=== PATIENT | female | born 1965 | race Caucasian/White ===

== ENCOUNTER 2018-09-26 05:42 | Emergency (ER) | payer SELFPAY ==
[2018-09-26] MEDS ORDERED: MORPHINE 4 MG/ML SYR ONE (06:09)
[2018-09-26] MEDS ORDERED: ONDANSETRON 4 MG/2 ML VIAL ONE (06:09)
[2018-09-26] MEDS ORDERED: KETOROLAC 30 MG/ML INJ ONE (06:10)
[2018-09-26 06:37] LABS: Hematocrit 36.3 % (36.0-45.0); RBC Red Blood Cell Count 3.49 M/uL (3.86-4.86)
[2018-09-26 06:58] LABS: Albumin 3.8 g/dL (3.4-5.0); Bilirubin Total 0.4 mg/dL (0.2-1.0); Potassium 3.9 mmol/L (3.5-5.1); Protein, Total 6.7 g/dL (6.4-8.2)
--- NOTE | 2018-09-26 07:12 | EDPHYS ---
Physician Documentation [facility] Name: Madalyn Oneil Age: 53 yrs Sex: Female : 1965 Arrival Date: 09/26/2018 Time: 05:46 Bed 3 Private MD: ED Physician Adrien Landon HPI: 09/26 06:15 This 53 yrs old Female presents to ER via Wheelchair with complaints of tw4 Shortness Of Breath, Fall Injury. 06:15 Trauma demographics: County: The injury occurred in [place] Location of Injury: The tw4 [place] park. Mechanism of injury: Fall: the patient fell from a standing position approximately approximately 2 feet, and struck a metal surface. Associated injuries: The patient sustained injury to the chest. The patient has not experienced similar symptoms in the past. SURGICAL PATHOLOGIST: 05:47 LMP N/A - Post-menopause jd3 Historical: - Allergies: 05:51 PENICILLINS; jd3 05:51 TETRACYCLINES; jd3 - Home Meds: 05:51 None [Active]; jd3 - PMHx: 05:51 Diverticulitis; Hypertension; Pancreatitis; jd3 - PSHx: 05:51 bone marrow biopsy; jd3 - Immunization history:: Adult Immunizations up to date. - Social history:: Smoking status: Patient uses tobacco products, smokes one pack cigarettes per day. - Ebola Screening: : Patient negative for fever greater than or equal to 101.5 degrees Fahrenheit, and additional compatible Ebola Virus Disease symptoms. ROS: 06:15 Constitutional: Negative for fever, chills, and weight loss, Eyes: Negative for injury, tw4 pain, redness, and discharge, Abdomen/GI: Negative for abdominal pain, nausea, vomiting, diarrhea, and constipation, Back: Negative for injury and pain, MS/Extremity: Negative for injury and deformity, Skin: Negative for injury, rash, and discoloration, Neuro: Negative for headache, weakness, numbness, tingling, and seizure. 06:15 Cardiovascular: Positive for chest pain, Negative for edema, orthopnea, palpitations, paroxysmal nocturnal dyspnea. 06:15 Respiratory: Positive for shortness of breath. Exam: 06:15 Constitutional: This is a well developed, well nourished patient who is awake, alert, tw4 and in no acute distress. Head/Face: Normocephalic, atraumatic. 06:15 Respiratory: Lungs have equal breath sounds bilaterally, clear to auscultation and percussion. No rales, rhonchi or wheezes noted. No increased work of breathing, no retractions or nasal flaring. 06:15 Abdomen/GI: Soft, non-tender, with normal bowel sounds. No distension or tympany. No guarding or rebound. No evidence of tenderness throughout. Back: No spinal tenderness. No costovertebral tenderness. Full range of motion. MS/ Extremity: Pulses equal, no cyanosis. Neurovascular intact. Full, normal range of motion. Neuro: Awake and alert, GCS 15, oriented to person, place, time, and situation. Cranial nerves II-XII grossly intact. Motor strength 5/5 in all extremities. Sensory grossly intact. Cerebellar exam normal. Normal gait. 06:15 Chest/axilla: Inspection: normal, Palpation: crepitus, is not appreciated, tenderness, that is moderate, of the right breast, that totally reproduces the patient's complaints. 06:15 Respiratory: the patient does not display signs of respiratory distress, Respirations: shallow respirations, that is mild, splinting, that is mild. Vital Signs: 05:47 BP 138 / 86; Pulse 84; Resp 22 S; Temp 97.6(O); Pulse Ox 97% on R/A; Weight 63.5 kg jd3 (R); Height 5 ft. 11 in. (180.34 cm) (R); Pain 10/10; 06:32 BP 91 / 56; Pulse 55; Resp 19; Pulse Ox 93% on R/A; ea 07:28 BP 100 / 55; Pulse 58; Resp 18 S; Temp 98.0(TE); Pulse Ox 95% on R/A; Pain 10/10; aa5 05:47 Body Mass Index 19.53 (63.50 kg, 180.34 cm) jd3 MDM: 06:07 Patient medically screened. tw4 06:15 Differential diagnosis: intra-abdominal injury, cardiac contusion. Data reviewed: vital tw4 signs, nurses notes. Data interpreted: Pulse oximetry: Interpretation: normal. Counseling: I had a detailed discussion with the patient and/or guardian regarding: the historical points, exam findings, and any diagnostic results supporting the discharge/admit diagnosis. Medication response: morphine markedly relieved the patient's pain. Symptoms have improved. 07:10 Response to treatment: the patient's symptoms have markedly improved after treatment, tw4 and as a result, I will discharge patient. 09/26 06:07 Order name: CBC w/o diff tw4 09/26 06:07 Order name: CMP tw4 09/26 05:47 Order name: CT Chest Wo Con jd3 09/26 07:28 Order name: INCENTIVE SPIROMETRY: VO received at 0720 aa5 Administered Medications: 05:54 Drug: morphine 4 mg Route: IVP; Site: left antecubital; ea 06:34 Follow up: Response: No adverse reaction; Pain is decreased ea 05:55 Drug: Zofran 4 mg Route: IVP; Site: left antecubital; ea 06:34 Follow up: Response: No adverse reaction ea 05:57 Drug: TORadol 30 mg Route: IVP; Site: left antecubital; ea 06:35 Follow up: Response: No adverse reaction ea 07:22 Drug: fentaNYL (PF) 50 mcg Route: IVP; Site: left antecubital; aa5 07:28 Follow up: Response: No adverse reaction aa5 Disposition: 09/26/18 07:11 Discharged to Home. Impression: Contusion chest wall. - Condition is Stable. - Discharge Instructions: Contusion, Chest Wall Pain, Chest Contusion, Adult. - Prescriptions for Tylenol- Codeine #4 300-60 mg Oral Tablet - take 1 tablet by ORAL route every 6 hours As needed; 15 tablet. Diclofenac Sodium 75 mg Oral Tablet Sustained Release - take 1 tablet by ORAL route 2 times per day; 30 tablet. - Medication Reconciliation Form, Thank You Letter, Antibiotic Education, Prescription Opioid Use form. - Follow up: Private Physician; When: Upon discharge from the Emergency Department; Reason: If symptoms return, Recheck today's complaints, Continuance of care. - Problem is new. - Symptoms have improved. Signatures: Dispatcher [employer] EDMS Audrey Smith, RN RN aa5 Jael Jamison RN RN ea Davies, Jonathon RN RN Adrien Malloy MD MD tw4 Corrections: (The following items were deleted from the chart) 07:30 07:11 09/26/2018 07:11 Discharged to Home. Impression: Contusion chest wall. Condition aa5 is Stable. Forms are Medication Reconciliation Form, Thank You Letter, Antibiotic Education, Prescription Opioid Use. Follow up: Private Physician; When: Upon discharge from the Emergency Department; Reason: If symptoms return, Recheck today's complaints, Continuance of care. Problem is new. Symptoms have improved. tw4
--- NOTE | 2018-09-26 07:12 | ER ---
Nurse's Notes [facility] Name: Madalyn Oneil Age: 53 yrs Sex: Female : 1965 Arrival Date: 09/26/2018 Time: 05:46 Bed 3 Private MD: Diagnosis: Contusion chest wall Presentation: 09/26 05:48 Presenting complaint: Patient states: "[place] and [place]pped and jd3 fell on the railing at about 2300 yesterday. I heard a crack and I think I might have some broken ribs.". Transition of care: patient was not received from another setting of care. Onset of symptoms was September 26, 2018. Risk Assessment: Do you want to hurt yourself or someone else? Patient reports no desire to harm self or others. Initial Sepsis Screen: Does the patient meet any 2 criteria? No. Patient's initial sepsis screen is negative. Does the patient have a suspected source of infection? No. Patient's initial sepsis screen is negative. Care prior to arrival: None. 05:48 Method Of Arrival: Wheelchair jd3 05:48 Acuity: CONNIE 3 jd3 Triage Assessment: 05:53 Respiratory: Reports shortness of breath at rest pain with respiration since last night jd3 at 2300 Onset: The symptoms/episode began/occurred yesterday, the patient has mild shortness of breath. 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 - Social history:: Smoking status: Patient uses tobacco products, smokes one pack cigarettes per day. - Ebola Screening: : Patient negative for fever greater than or equal to 101.5 degrees Fahrenheit, and additional compatible Ebola Virus Disease symptoms. Screenin:53 Abuse screen: Denies threats or abuse. Nutritional screening: No deficits noted. jd3 Tuberculosis screening: No symptoms or risk factors identified. Fall Risk IV access (20 points). Ambulatory Aid- None/Bed Rest/Nurse Assist (0 pts). Gait- Weak (10 pts.). Mental Status- Oriented to own ability (0 pts). Total Leonard Fall Scale indicates Low Risk Score (25-44 pts). Fall prevention measures have been instituted. Side Rails Up X 2 Placed close to Nursing Station Frequent Obs/Assesments occuring Family Present and informed to notify staff if they need to leave bedside. Assessment: 05:58 General: Appears uncomfortable, Behavior is appropriate for age. Pain: Complains of ea pain in right lateral posterior chest Quality of pain is described as aching. Neuro: Level of Consciousness is awake, alert, obeys commands, Oriented to person, place, time. Cardiovascular: Patient's skin is warm and dry. Respiratory: Airway is patent Respiratory effort is even, shallow, Respiratory pattern is symmetrical, tachypnea. Respiratory: Parent/caregiver reports the patient having shortness of breath. GI: Abdomen is non-distended. Derm: Skin is dry, Skin is normal, Skin temperature is warm. 06:37 Reassessment: Patient and/or family updated on plan of care and expected duration. Pain ea level reassessed. Patient is alert, oriented x 3, equal unlabored respirations, skin warm/dry/pink. Pt reports pain has decreased some 10/14. 07:19 Reassessment: Dr. Landon speaking to patient about x-ray results and discharge aa5 instructions . 07:29 Reassessment: Patient is alert, oriented x 3, equal unlabored respirations, skin aa5 warm/dry/pink. Vital Signs: 05:47 BP 138 / 86; Pulse 84; Resp 22 S; Temp 97.6(O); Pulse Ox 97% on R/A; Weight 63.5 kg jd3 (R); Height 5 ft. 11 in. (180.34 cm) (R); Pain 10/10; 06:32 BP 91 / 56; Pulse 55; Resp 19; Pulse Ox 93% on R/A; ea 07:28 BP 100 / 55; Pulse 58; Resp 18 S; Temp 98.0(TE); Pulse Ox 95% on R/A; Pain 10/10; aa5 05:47 Body Mass Index 19.53 (63.50 kg, 180.34 cm) jd3 ED Course: 05:46 Patient arrived in ED. ds1 05:50 Triage completed. jd3 05:51 Arm band placed on. jd3 05:52 Inserted saline lock: 20 gauge in left antecubital area, using aseptic technique. jd3 placed by Jael HAYES. 05:53 Patient has correct armband on for positive identification. Placed in gown. Bed in low jd3 position. Call light in reach. Side rails up X 1. Adult w/ patient. 05:57 Jael Jamison, RN is Primary Nurse. ea 06:06 Adrien Landon MD is Attending Physician. tw4 06:22 CT Chest Wo Con In Process Unspecified. EDMS 07:29 No provider procedures requiring assistance completed. IV discontinued, intact, aa5 bleeding controlled, No redness/swelling at site. Pressure dressing applied. Administered Medications: 05:54 Drug: morphine 4 mg Route: IVP; Site: left antecubital; ea 06:34 Follow up: Response: No adverse reaction; Pain is decreased ea 05:55 Drug: Zofran 4 mg Route: IVP; Site: left antecubital; ea 06:34 Follow up: Response: No adverse reaction ea 05:57 Drug: TORadol 30 mg Route: IVP; Site: left antecubital; ea 06:35 Follow up: Response: No adverse reaction ea 07:22 Drug: fentaNYL (PF) 50 mcg Route: IVP; Site: left antecubital; aa5 07:28 Follow up: Response: No adverse reaction aa5 Outcome: 07:11 Discharge ordered by . tw4 07:29 Discharged to home via wheelchair, with significant other. aa5 07:29 Condition: stable 07:29 Discharge instructions given to patient, Instructed on discharge instructions, follow up and referral plans. medication usage, Incentive spirometer use Demonstrated understanding of instructions, follow-up care, medications, incentive spirometer use Prescriptions given X 2. 07:30 Patient left the ED. aa5 Signatures: Dispatcher [facility] Saritha Wiley ds1 Audrey Smith RN RN aa5 Jael Jamison, RN Nino Rai ea, RN RN jd3 Wadley, Terrence, MD MD tw4
[2018-09-26] MEDS ORDERED: FENTANYL CITR 100 MCG/2 ML ONE (07:35)
--- NOTE | 2018-09-26 10:31 | RAD REPORT ---
EXAM DESCRIPTION: CT Chest Without Intravenous Contrast CLINICAL HISTORY: The patient is 53 years old and is Female; PAIN TECHNIQUE: Axial computed tomography images of the chest without intravenous contrast. Sagittal an d coronal reformatted images were created and reviewed. This CT exam was performed using one or mor e of the following dose reduction techniques: automated exposure control, adjustment of the mA and/ or kV according to patient size, and/or use of iterative reconstruction technique. COMPARISON: No relevant prior studies available. FINDINGS: Lungs: Minimal subsegmental atelectasis or scarring at the left lung base. Otherwise no focal lung consolidation. Pleural space: Unremarkable. No pneumothorax. No significant effusion. Heart: Unremarkable. No cardiomegaly. No significant pericardial effusion. Bones/joints: Unremarkable. No acute fracture. No dislocation. Soft tissues: Unremarkable. Vasculature: Unremarkable. No thoracic aortic aneurysm. Lymph nodes: Unremarkable. No enlarged lymph nodes. IMPRESSION: Minimal subsegmental atelectasis or scarring at the left lung base. Otherwise no focal l solomon consolidation. Electronically signed by: Luis Fernando Hearn MD 09/26/2018 6:31 AM CDT Due to temporary technical issues with the PACS/Fluency reporting system, reports are being signed by the in house radiologist as a courtesy to ensure prompt reporting. The interpreting radiologist is f ully responsible for the content of the report.
== END 2018-09-26 07:30 | disposition home or self-care (01) ==
LOC: ER 05:42
DX: S20.219A Contusion of unspecified front wall of thorax, initial encounter (principal); W17.89XA Other fall from one level to another, initial encounter; Y92.830 Public park as the place of occurrence of the external cause; I10 Essential (primary) hypertension; F17.210 Nicotine dependence, cigarettes, uncomplicated; Z88.1 Allergy status to other antibiotic agents; Z88.0 Allergy status to penicillin
CPT/HCPCS: 36415; 71250; 80053; 85027; 96374; 96375; 99284; J2405; J3010

== ENCOUNTER 2019-08-05 10:32 | Emergency (ER) | payer SELFPAY ==
[2019-08-05] MEDS ORDERED: ACETAMINOPHEN 325 MG TABLET ONE (11:32)
[2019-08-05] MEDS ORDERED: FAMOTIDINE 20 MG/2 ML VIAL IV ONE (11:32)
[2019-08-05] MEDS ORDERED: ONDANSETRON 4 MG/2 ML VIAL ONE (11:32)
[2019-08-05] MEDS ORDERED: NA CHLORIDE 0.9% 1,000 ML ONE (11:32)
[2019-08-05 11:38] LABS: Absolute Lymphocytes (CBC) 0.4 K/uL (0.7-4.9); Basophils % 0.3 % (0-1.3); Hematocrit 36.9 % (36.0-45.0); Lymphocytes % 6.1 % (15.3-44.8); MPV 8.4 fL (7.6-11.3); RBC Red Blood Cell Count 3.63 M/uL (3.86-4.86)
[2019-08-05 11:49] LABS: Albumin 4.4 g/dL (3.4-5.0); Bilirubin Direct 0.3 mg/dL (0-0.2); Bilirubin Total 1.1 mg/dL (0.2-1.0); Potassium 4.2 mmol/L (3.5-5.1); Protein, Total 8.1 g/dL (6.4-8.2)
[2019-08-05 12:24] LABS: Urine White Blood Cell Casts OK
[2019-08-05 12:25] LABS: Blood Morphology Comment NOT SEEN (NOT SEEN); Platelet Estimate DECR
[2019-08-05] MEDS ORDERED: KETOROLAC 30 MG/ML INJ ONE (12:44)
[2019-08-05 13:35] VITALS: TEMP 98
[2019-08-05 13:37] VITALS: O2SAT 99
[2019-08-05 13:38] VITALS: BP 145/86
--- NOTE | 2019-08-06 18:55 | ER ---
Nurse's Notes [facility] Name: Madalyn Oneil Age: 54 yrs Sex: Female : 1965 Arrival Date: 08/05/2019 Time: 10:33 Bed 15 Private MD: Diagnosis: Nausea and vomiting;Headache Presentation: 08/04 11:00 Chief complaint: Patient states: has been vomiting and coughing since 3 am, also has a iw headache and right sided abd pain. Coronavirus screen: Proceed with normal triage. Patient denies a cough. Patient denies shortness of breath or difficulty breathing. Patient denies measured and/or subjective temperature greater than 100.4F prior to today's visit. Patient denies travel on a cruise ship or to a country the [facility] currently lists as an affected area. Patient denies contact with known and/or suspected case of COVID-19. Ebola Screen: Patient negative for fever greater than or equal to 101.5 degrees Fahrenheit, and additional compatible Ebola Virus Disease symptoms Patient denies exposure to infectious person. Patient denies travel to an Ebola-affected area in the 21 days before illness onset. No symptoms or risks identified at this time. Initial Sepsis Screen: Does the patient meet any 2 criteria? No. Patient's initial sepsis screen is negative. Does the patient have a suspected source of infection? No. Patient's initial sepsis screen is negative. Risk Assessment: Do you want to hurt yourself or someone else? Patient reports no desire to harm self or others. Onset of symptoms was August 05, 2019. 11:00 Method Of Arrival: Ambulatory iw 11:00 Acuity: CONNIE 3 iw SETTLEMENT TECHNICIAN: 13:25 unknown ca1 Historical: - Allergies: 11:03 PENICILLINS; iw 11:03 TETRACYCLINES; iw - Home Meds: 11:03 losartan 50 mg oral tab 1 tab once daily [Active]; iw - PMHx: 11:03 Diverticulitis; Hypertension; Pancreatitis; iw - Immunization history:: Adult Immunizations not up to date. - Social history:: Smoking status: Patient reports the use of cigarette tobacco products, smokes one-half pack cigarettes per day. Screenin:13 Abuse screen: Denies threats or abuse. Denies injuries from another. Nutritional ca1 screening: No deficits noted. Tuberculosis screening: No symptoms or risk factors identified. Fall Risk IV access (20 points). Assessment: 11:13 General: Appears in no apparent distress. comfortable, Behavior is calm, cooperative, ca1 appropriate for age. Pain: Complains of pain in left baptism and right baptism Pain does not radiate. Pain currently is 9 out of 10 on a pain scale. Pain began at 0400 today Is intermittent. Neuro: Level of Consciousness is awake, alert, obeys commands, Oriented to person, place, time, situation, Appropriate for age Control Clerk [employer] are equal bilaterally Moves all extremities. Gait is steady, Speech is normal, Facial symmetry appears normal, Pupils are PERRLA, Intact Reports headache. Neuro: Reports dizziness. Cardiovascular: Heart tones S1 S2 present Capillary refill < 3 seconds Patient's skin is warm and dry. Respiratory: Airway is patent Respiratory effort is even, unlabored, Respiratory pattern is regular, symmetrical, Breath sounds are clear bilaterally. GI: Abdomen is flat, non-distended, Bowel sounds present X 4 quads. Abd is soft and non tender X 4 quads. Reports nausea, vomiting. GI: Reports upper abdominal pain, R anterior abdominal pain described as cramp after coughing. : No signs and/or symptoms were reported regarding the genitourinary system. EENT: No signs and/or symptoms were reported regarding the EENT system. Derm: Skin is intact, is healthy with good turgor, Skin is pink, warm \T\ dry. Musculoskeletal: Circulation, motion, and sensation intact. Capillary refill < 3 seconds. 11:59 Reassessment: Patient appears in no apparent distress at this time. Patient and/or ca1 family updated on plan of care and expected duration. Pain level reassessed. Patient is alert, oriented x 3, equal unlabored respirations, skin warm/dry/pink. 12:41 Reassessment: Patient appears in no apparent distress at this time. Patient and/or ca1 family updated on plan of care and expected duration. Pain level reassessed. Patient is alert, oriented x 3, equal unlabored respirations, skin warm/dry/pink. PO challenge completed. No reports N.V at this time. Notified provider. Reports persistent headache. Notified provider, med ordered and given. 13:24 Reassessment: Patient appears in no apparent distress at this time. Patient is alert, ca1 oriented x 3, equal unlabored respirations, skin warm/dry/pink. 14:22 Reassessment: pt returned to retrieve her wallet, wallet given to patient, pt had iw various credit cards and $56 in [place], along with two rings inside wallet , [facility] Vital Signs: 11:00 BP 163 / 107; Pulse 96; Resp 18 S; Temp 98.0; Pulse Ox 96% on R/A; iw 11:00 BP 160 / 102; Pulse 83; Resp 15 S; Pulse Ox 98% on R/A; ca1 12:00 BP 150 / 93; Pulse 96; Resp 15 S; Pulse Ox 99% on R/A; ca1 13:24 BP 145 / 86; Pulse 84; Resp 15 S; Pulse Ox 99% on R/A; ca1 ED Course: 10:33 Patient arrived in ED. as 10:46 Ismael Kemp MD is Attending Physician. kdr 10:55 Nelda Quiroz, ABIGAIL is Primary Nurse. ca1 11:03 Triage completed. iw 11:03 Arm band placed on. iw 11:12 No provider procedures requiring assistance completed. Initial lab(s) drawn, by in, ca1 held in ED. Inserted saline lock: 20 gauge in right forearm, using aseptic technique. Blood collected. 11:13 Patient has correct armband on for positive identification. Placed in gown. Bed in low ca1 position. Call light in reach. Side rails up X 1. 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 Pulse ox on. NIBP on. Door closed. Noise minimized. Lights dimmed. Warm blanket given. 11:21 sent to lab. ca1 13:25 IV discontinued, intact, bleeding controlled, No redness/swelling at site. Pressure ca1 dressing applied. Administered Medications: 11:23 Drug: Tylenol 650 mg Route: PO; ca1 12:40 Follow up: Response: No adverse reaction; Pain is unchanged, physician notified ca1 11:24 Drug: NS 0.9% 1000 ml Route: IV; Rate: 1 bolus; Site: right forearm; ca1 12:39 Follow up: Response: No adverse reaction; IV Status: Completed infusion ca1 11:25 Drug: Pepcid 20 mg Route: IVP; Site: right antecubital; ca1 12:40 Follow up: Response: No adverse reaction; Pain is decreased ca1 11:28 Drug: Zofran (Ondansetron) 4 mg Route: IVP; Site: right antecubital; ca1 12:40 Follow up: Response: No adverse reaction; Nausea is decreased ca1 12:38 Drug: Ketorolac 15 mg Route: IVP; Site: right forearm; ca1 13:17 Follow up: Response: No adverse reaction; Pain is decreased ca1 Outcome: 13:07 Discharge ordered by . kdr 13:25 Discharged to home ambulatory. ca1 13:25 Condition: stable 13:25 Discharge instructions given to patient, Instructed on discharge instructions, follow up and referral plans. no drinking with medication, no driving heavy equipment, medication usage, Demonstrated understanding of instructions, follow-up care, medications, Prescriptions given X 3. 13:26 Patient left the ED. ca1 Signatures: Ismael Kemp MD MD kdr Martinez, Amelia as Williams, Irene, RN RN iw Nelda Quiroz RN RN ca1
--- NOTE | 2019-08-06 18:55 | EDPHYS ---
Physician Documentation [facility] Name: Madalyn Oneil Age: 54 yrs Sex: Female : 1965 Arrival Date: 08/05/2019 Time: 10:33 Bed 15 Private MD: ED Physician Ismael Kemp HPI: 08/04 12:09 This 54 yrs old Female presents to ER via Ambulatory with complaints of kdr Vomiting, Headache. 12:09 The patient presents to the emergency department with nausea, that is moderate, kdr vomiting, that is intermittent. Onset: The symptoms/episode began/occurred suddenly, at 03:00. Possible causes: unknown, bad food exposure. The symptoms are aggravated by nothing. The symptoms are alleviated by nothing. Associated signs and symptoms: Pertinent positives: Pertinent negatives: abdominal pain, anorexia, belching, constipation, diarrhea, dysuria, fever, flatulence, GI bleeding, hematuria, nausea, vomiting. Severity of symptoms: At their worst the symptoms were moderate in the emergency department the symptoms have improved moderately. The patient has not experienced similar symptoms in the past. The patient has not recently seen a physician. [employer]: 13:25 unknown ca1 Historical: - Allergies: 11:03 PENICILLINS; iw 11:03 TETRACYCLINES; iw - Home Meds: 11:03 losartan 50 mg oral tab 1 tab once daily [Active]; iw - PMHx: 11:03 Diverticulitis; Hypertension; Pancreatitis; iw - Immunization history:: Adult Immunizations not up to date. - Social history:: Smoking status: Patient reports the use of cigarette tobacco products, smokes one-half pack cigarettes per day. ROS: 12:09 Constitutional: Negative for fever, chills, and weight loss, Eyes: Negative for injury, kdr pain, redness, and discharge, Neck: Negative for injury, pain, and swelling, Cardiovascular: Negative for chest pain, palpitations, and edema, Respiratory: Negative for shortness of breath, cough, wheezing, and pleuritic chest pain, Back: Negative for injury and pain, : Negative for injury, bleeding, discharge, and swelling, MS/Extremity: Negative for injury and deformity, Skin: Negative for injury, rash, and discoloration, Neuro: Negative for headache, weakness, numbness, tingling, and seizure activity. Psych: Negative for depression, anxiety, suicide ideation, homicidal ideation, and hallucinations, Allergy/Immunology: Negative for hives, rash, and allergies, Endocrine: Negative for neck swelling, polydipsia, polyuria, polyphagia, and marked weight changes, Hematologic/Lymphatic: Negative for swollen nodes, abnormal bleeding, and unusual bruising. 12:09 Abdomen/GI: Positive for nausea and vomiting, Negative for abdominal distension, dysphagia, hematemesis, black/tarry stool, rectal pain, rectal bleeding, bowel incontinence, flatulence. 12:09 Neuro: Positive for headache, Negative for altered mental status, tinnitus, tremor, visual changes. Exam: 13:10 Constitutional: This is a well developed, well nourished patient who is awake, alert, kdr and in no acute distress. Head/Face: Normocephalic, atraumatic. Eyes: Pupils equal round and reactive to light, extra-ocular motions intact. Lids and lashes normal. Conjunctiva and sclera are non-icteric and not injected. Cornea within normal limits. Periorbital areas with no swelling, redness, or edema. Neck: Trachea midline, no thyromegaly or masses palpated, and no cervical lymphadenopathy. Supple, full range of motion without nuchal rigidity, or vertebral point tenderness. No Meningismus. Chest/axilla: Normal chest wall appearance and motion. Nontender with no deformity. No lesions are appreciated. Cardiovascular: Regular rate and rhythm with a normal S1 and S2. No gallops, murmurs, or rubs. Normal PMI, no JVD. No pulse deficits. Respiratory: Lungs have equal breath sounds bilaterally, clear to auscultation and percussion. No rales, rhonchi or wheezes noted. No increased work of breathing, no retractions or nasal flaring. Abdomen/GI: Soft, non-tender, with normal bowel sounds. No distension or tympany. No guarding or rebound. No evidence of tenderness throughout. Back: No spinal tenderness. No costovertebral tenderness. Full range of motion. Skin: Warm, dry with normal turgor. Normal color with no rashes, no lesions, and no evidence of cellulitis. MS/ Extremity: Pulses equal, no cyanosis. Neurovascular intact. Full, normal range of motion. Neuro: Awake and alert, GCS 15, oriented to person, place, time, and situation. Cranial nerves II-XII grossly intact. Motor strength 5/5 in all extremities. Sensory grossly intact. Cerebellar exam normal. Normal gait. Psych: Awake, alert, with orientation to person, place and time. Behavior, mood, and affect are within normal limits. 13:10 Neck: ROM/movement: no acute changes, pain, is not appreciated, with any movement. Vital Signs: 11:00 BP 163 / 107; Pulse 96; Resp 18 S; Temp 98.0; Pulse Ox 96% on R/A; iw 11:00 BP 160 / 102; Pulse 83; Resp 15 S; Pulse Ox 98% on R/A; ca1 12:00 BP 150 / 93; Pulse 96; Resp 15 S; Pulse Ox 99% on R/A; ca1 13:24 BP 145 / 86; Pulse 84; Resp 15 S; Pulse Ox 99% on R/A; ca1 MDM: 13:07 Patient medically screened. kdr 13:10 Data reviewed: vital signs, nurses notes, lab test result(s), radiologic studies. kdr Counseling: I had a detailed discussion with the patient and/or guardian regarding: the historical points, exam findings, and any diagnostic results supporting the discharge/admit diagnosis, lab results, radiology results, the need for outpatient follow up. 13:11 Differential diagnosis: gastritis, gastroenteritis. Special discussion: Based on the [facility] patient's Hx, exam, and Dx evaluation, there is no indication for emergent surgery or inpatient Tx. It is understood by the patient/guardian that if the Sx's persist or worsen they need to return immediately for re-evaluation. I discussed with the patient/guardian in detail that at this point there is no indication for admission to the hospital. It is understood, however, that if the symptoms persist or worsen the patient needs to return immediately for re-evaluation. ED course: The patient was happy with the care provided and the plan for discharge and follow-up. 08/04 11:17 Order name: Basic Metabolic Panel; Complete Time: 12:07 kdr 08/04 11:17 Order name: CBC with Diff; Complete Time: 15:00 kdr 08/04 11:17 Order name: Hepatic Function; Complete Time: 12:07 kdr 08/04 11:17 Order name: Lipase; Complete Time: 12: kdr 08/04 12:25 Order name: CBC Smear Scan; Complete Time: 15:00 EDMS 08/04 11:17 Order name: IV Saline Lock; Complete Time: 11: [facility] 08/04 11:17 Order name: Labs collected and sent; Complete Time: : [facility] 08/04 12:08 Order name: PO challenge; Complete Time: 12:34 [facility] Administered Medications: 11:23 Drug: Tylenol 650 mg Route: PO; ca1 12:40 Follow up: Response: No adverse reaction; Pain is unchanged, physician notified ca1 11:24 Drug: NS 0.9% 1000 ml Route: IV; Rate: 1 bolus; Site: right forearm; ca1 12:39 Follow up: Response: No adverse reaction; IV Status: Completed infusion ca1 11:25 Drug: Pepcid 20 mg Route: IVP; Site: right antecubital; ca1 12:40 Follow up: Response: No adverse reaction; Pain is decreased ca1 11:28 Drug: Zofran (Ondansetron) 4 mg Route: IVP; Site: right antecubital; ca1 12:40 Follow up: Response: No adverse reaction; Nausea is decreased ca1 12:38 Drug: Ketorolac 15 mg Route: IVP; Site: right forearm; ca1 13:17 Follow up: Response: No adverse reaction; Pain is decreased ca1 Disposition: 08/05/19 13:07 Discharged to Home. Impression: Nausea and vomiting, Headache. - Condition is Stable. - Discharge Instructions: General Headache Without Cause, Nausea and Vomiting, Adult, [id number]. - Prescriptions for Ibuprofen 600 mg Oral Tablet - take 1 tablet by ORAL route every 6 hours As needed take with food; 30 tablet. Zofran 4 mg Oral Tablet - take 1 tablet by ORAL route every 4-6 hours As needed; 12 tablet. Tramadol 50 mg Oral Tablet - take 1 tablet by ORAL route every 8 hours as needed; 12 tablet. - Medication Reconciliation Form, Thank You Letter, Prescription Opioid Use form. - Follow up: Private Physician; When: 2 - 3 days; Reason: If symptoms return, Further diagnostic work-up, Recheck today's complaints, Continuance of care, Re-evaluation by your physician. - Problem is new. - Symptoms have improved. Signatures: Dispatcher [employer] [facility] Ismael Kemp MD MD [facility] Maryann Muro RN RN iw Nelda Quiroz RN RN ca1 Corrections: (The following items were deleted from the chart) 13:26 13:07 08/05/2019 13:07 Discharged to Home. Impression: Nausea and vomiting; Headache. ca1 Condition is Stable. Forms are Medication Reconciliation Form, Thank You Letter, Antibiotic Education, Prescription Opioid Use. Follow up: Private Physician; When: 2 - 3 days; Reason: If symptoms return, Further diagnostic work-up, Recheck today's complaints, Continuance of care, Re-evaluation by your physician. Problem is new. Symptoms have improved. kdr
== END 2019-08-05 13:26 | disposition home or self-care (01) ==
LOC: ER 10:32
DX: R51 Headache (principal); F17.210 Nicotine dependence, cigarettes, uncomplicated; I10 Essential (primary) hypertension; Z88.1 Allergy status to other antibiotic agents; Z88.0 Allergy status to penicillin
CPT/HCPCS: 36415; 80048; 80076; 83690; 85025; 99284; J2405; J7030

== ENCOUNTER 2020-04-11 17:12 | Emergency (ER) | payer SELFPAY ==
[2020-04-11] MEDS ORDERED: METOCLOPRAMIDE 10 MG/2mL INJ ONE (18:38)
[2020-04-11] MEDS ORDERED: DIPHENHYDRAMINE 50 MG/ML VIAL ONE (18:38)
[2020-04-11] MEDS ORDERED: FAMOTIDINE 20 MG/2 ML VIAL IV ONE (18:39)
[2020-04-11] MEDS ORDERED: NA CHLORIDE 0.9% 1,000 ML ONE (18:39)
[2020-04-11 19:01] LABS: Absolute Lymphocytes (CBC) 0.6 K/uL (0.7-4.9); Basophils % 0.3 % (0-1.3); Hematocrit 30.1 % (36.0-45.0); Lymphocytes % 10.1 % (15.3-44.8); MPV 8.8 fL (7.6-11.3); RBC Red Blood Cell Count 2.77 M/uL (3.86-4.86)
[2020-04-11 19:14] LABS: Albumin 3.6 g/dL (3.4-5.0); Bilirubin Direct 0.6 mg/dL (0-0.2); Bilirubin Total 1.5 mg/dL (0.2-1.0); Potassium 4.1 mmol/L (3.5-5.1); Protein, Total 7.1 g/dL (6.4-8.2)
--- NOTE | 2020-04-11 19:43 | RAD REPORT ---
EXAM DESCRIPTION: CTAbdomen Pelvis W Contrast - 04/11/2020 7:28 pm CLINICAL HISTORY: Abdominal pain. N/V;Abd pain COMPARISON: Abdomen Pelvis W Contrast dated 03/18/2016Abdomen Pelvis W Contrast dated 03/18/2016; Thorax Wo Con dated 09/26/2018 TECHNIQUE: Biphasic CT imaging of the abdomen and pelvis was performed with 100 ml non-ionic IV cont rast. All CT scans are performed using dose optimization technique as appropriate and may include automated exposure control or mA/KV adjustment according to patient size. FINDINGS: The lung bases are clear. The liver demonstrates diffuse fatty infiltration. The spleen, pancreas, adrenal glands and kidneys a re within normal limits. No bowel obstruction, free air, free fluid or abscess. Sigmoid diverticulosis coli is present. Mild m ucosal thickening is seen throughout the entire colon suggesting a mild colitis pattern. The appendix is normal. No evidence of significant lymphadenopathy. No suspicious bony findings. IMPRESSION: A mild colitis pattern is suspected. Sigmoid diverticulosis is notable. Diffuse fatty liver.
[2020-04-11] MEDS ORDERED: METRONIDAZOLE 500mg IVPB 500 MG/100 ML BAG IV ONE (20:39)
--- NOTE | 2020-04-11 20:52 | RAD REPORT ---
EXAM DESCRIPTION: US - Abdomen Exam Limited - 04/11/2020 8:19 pm CLINICAL HISTORY: N/V, elevated liver enzymes COMPARISON: Abdomen Pelvis W Contrast dated 04/11/2020 FINDINGS: The gallbladder demonstrates no gallstones. No pericholecystic fluid or gallbladder wall t hickening. The common bile duct is normal measuring 4 mm. The liver demonstrates diffuse fatty liver. IMPRESSION: Negative gallbladder/ biliary tree findings. Diffuse fatty liver.
[2020-04-11 21:01] LABS: Blood Morphology Comment NOTED (NOT SEEN); Macrocytosis 1+; Platelet Estimate DECR; White Blood Cell Scan OK (OK)
--- NOTE | 2020-04-11 21:29 | ER ---
Nurse's Notes [facility] Name: Madalyn Oneil Age: 55 yrs Sex: Female : 1965 Arrival Date: 04/11/2020 Time: 17:12 Bed 14 Private MD: Diagnosis: Colitis;Nausea and vomiting Presentation: 04/11 17:16 Acuity: CONNIE 3 sg 17:35 Chief complaint: Patient states: I have had some abdominal pain, I have pancreatitis sg problems, nausea vomiting as well as a headache after vomiting. This feels different than the issues with my stomach I have had before, Im not able to keep liquids down, at this point Im dry heaving and vomiting up a little bit of bile. Coronavirus screen: Client denies travel out of the [place] in the last 14 days. Ebola Screen: Patient negative for fever greater than or equal to 101.5 degrees Fahrenheit, and additional compatible Ebola Virus Disease symptoms Patient denies exposure to infectious person. Patient denies travel to an Ebola-affected area in the 21 days before illness onset. No symptoms or risks identified at this time. Initial Sepsis Screen: Does the patient meet any 2 criteria? HR > 90 bpm. Does the patient have a suspected source of infection? Yes: Acute abdominal pain. Risk Assessment: Do you want to hurt yourself or someone else? Patient reports no desire to harm self or others. Onset of symptoms was April 11, 2020. Care prior to arrival: None. Transition of care: patient was not received from another setting of care. 17:35 Method Of Arrival: Ambulatory sg Triage Assessment: 17:50 General: Appears distressed, uncomfortable, Behavior is cooperative, appropriate for bp age, anxious. Pain: Complains of pain in head. EENT: No deficits noted. Neuro: Level of Consciousness is awake, alert, obeys commands, Oriented to Appropriate for age Reports headache. Cardiovascular: No deficits noted. Respiratory: No deficits noted. GI: Reports nausea. : No signs and/or symptoms were reported regarding the genitourinary system. Derm: No deficits noted. Musculoskeletal: No deficits noted. Historical: - Allergies: 17:15 PENICILLINS; sg 17:15 TETRACYCLINES; sg - PMHx: 17:15 Diverticulitis; Hypertension; Pancreatitis; sg - Immunization history:: Adult Immunizations not up to date. - Social history:: Smoking status: Patient denies any tobacco usage or history of. Screenin:00 Abuse screen: Denies threats or abuse. Nutritional screening: No deficits noted. jb4 Tuberculosis screening: No symptoms or risk factors identified. Fall Risk None identified. Assessment: 17:50 General: SEE TRIAGE NOTE. bp 19:00 Reassessment: Patient appears in no apparent distress at this time. Patient and/or jb4 family updated on plan of care and expected duration. Pain level reassessed. Patient is alert, oriented x 3, equal unlabored respirations, skin warm/dry/pink. 20:00 Reassessment: Patient appears in no apparent distress at this time. Patient and/or jb4 family updated on plan of care and expected duration. Pain level reassessed. Patient is alert, oriented x 3, equal unlabored respirations, skin warm/dry/pink. 21:00 Reassessment: Patient appears in no apparent distress at this time. Patient and/or jb4 family updated on plan of care and expected duration. Pain level reassessed. Patient is alert, oriented x 3, equal unlabored respirations, skin warm/dry/pink. 22:00 Reassessment: Patient appears in no apparent distress at this time. Patient and/or jb4 family updated on plan of care and expected duration. Pain level reassessed. Patient is alert, oriented x 3, equal unlabored respirations, skin warm/dry/pink. Vital Signs: 17:16 BP 142 / 88; Pulse 90; Resp 16; Temp 97.9; Pulse Ox 100% on R/A; sg 19:00 BP 139 / 79; Pulse 83; Resp 16; Pulse Ox 100% on R/A; jb4 21:13 BP 122 / 80; Pulse 83; Resp 16; Pulse Ox 100% on R/A; jb4 22:00 BP 147 / 91; Pulse 74; Resp 16; Pulse Ox 98% on R/A; jb4 ED Course: 17:12 Patient arrived in ED. ag5 17:16 Triage completed. sg 17:16 Arm band placed on. sg 17:51 Tab Malagon PA is PHCP. cp 17:51 Carlito Hernadez MD is Attending Physician. cp 18:02 Carlos Casas, RN is Primary Nurse. sg 18:21 Balaji Meléndez, RN is Primary Nurse. bp 18:33 Radiology exam delayed due to IV insertion attempt and/or patient not having vm2 appropriate IV at this time. 18:45 Inserted saline lock: 20 gauge in left forearm, using aseptic technique. Blood bp collected. 19:00 Patient has correct armband on for positive identification. Bed in low position. Call jb4 light in reach. Side rails up X 1. Pulse ox on. NIBP on. 19:22 Gonzalez Marrero MD is Attending Physician. cp 19:28 CT Abd/Pelvis - IV Contrast Only In Process Unspecified. EDMS 20:19 US Abdomen Limited In Process Unspecified. EDMS 21:27 Jose Beckham MD is Referral Physician. cp 22:45 No provider procedures requiring assistance completed. IV discontinued, intact, jb4 bleeding controlled, No redness/swelling at site. Pressure dressing applied. Administered Medications: 18:45 Drug: NS 0.9% 1000 ml Route: IV; Rate: 1 bolus; Site: left forearm; bp 18:45 Drug: Pepcid 20 mg Route: IVP; Site: left forearm; bp 18:45 Drug: Reglan 10 mg Route: IVP; Site: left forearm; bp 18:45 Drug: Benadryl 12.5 mg Route: IVP; Site: left forearm; bp 21:19 Drug: metroNIDAZOLE 500 mg Volume: 100 ml; Route: IVPB; Infused Over: 30 mins; Site: jb4 left wrist; 21:45 Drug: Cipro 500 mg Route: PO; jb4 21:45 Drug: Zofran (Ondansetron) 4 mg Route: IVP; Site: right antecubital; jb4 Outcome: 21:28 Discharge ordered by MD. cp 22:45 Discharged to home ambulatory. jb4 22:45 Condition: stable 22:45 Discharge instructions given to patient, Instructed on discharge instructions, follow up and referral plans. medication usage, Demonstrated understanding of instructions, follow-up care, medications, Prescriptions given X 4. 22:49 Patient left the ED. jb4 Signatures: Dispatcher [employer] EDMS Carlos Casas RN Tab Rosario PA PA cp Bryson, James, RN RN jb4 [facility] Balaji Meléndez RN RN bp [employer] 5 Corrections: (The following items were deleted from the chart) 18:03 17:35 Chief complaint: Patient states: I have had some abdominal pain, I have sg pancreatitis problems, nausea vomiting as well as a headache sg
--- NOTE | 2020-04-11 21:29 | EDPHYS ---
Physician Documentation [facility] Name: Madalyn Oneil Age: 55 yrs Sex: Female : 1965 Arrival Date: 04/11/2020 Time: 17:12 Bed 14 Private MD: ED Physician Gonzalez Marrero HPI: 04/11 18:20 This 55 yrs old Female presents to ER via Ambulatory with complaints of cp Nausea/Vomiting, Headache. 18:20 The patient presents to the emergency department with nausea, that is moderate, cp vomiting, that is continuous, abdominal pain, of the abdomen diffusely. Onset: The symptoms/episode began/occurred 3 day(s) ago. 18:20 Possible causes: history of pancreatitis. The symptoms are aggravated by food . cp Associated signs and symptoms: Pertinent negatives: constipation, diarrhea, fever, GI bleeding, active vomiting. Historical: - Allergies: 17:15 PENICILLINS; sg 17:15 TETRACYCLINES; sg - PMHx: 17:15 Diverticulitis; Hypertension; Pancreatitis; sg - Immunization history:: Adult Immunizations not up to date. - Social history:: Smoking status: Patient denies any tobacco usage or history of. ROS: 18:30 Constitutional: Positive for poor PO intake, Negative for body aches, chills, fever. cp 18:30 Eyes: Negative for injury, pain, redness, and discharge. cp 18:30 ENT: Negative for ear pain, sore throat, difficulty swallowing, difficulty handling secretions. 18:30 Cardiovascular: Negative for chest pain, palpitations. 18:30 Respiratory: Negative for cough, shortness of breath, wheezing. 18:30 Abdomen/GI: Positive for abdominal pain, nausea and vomiting, anorexia, Negative for diarrhea, constipation, hematemesis, black/tarry stool, rectal bleeding. 18:30 Back: Negative for radiated pain. 18:30 : Negative for urinary symptoms. 18:30 Neuro: Negative for altered mental status, headache, weakness. 18:30 All other systems are negative. Exam: 18:33 Constitutional: The patient appears in no acute distress, alert, awake, cp non-diaphoretic, non-toxic, well developed, well nourished. 18:33 Head/Face: Normocephalic, atraumatic. cp 18:33 Eyes: Periorbital structures: appear normal, Conjunctiva: normal, no exudate, no injection, Sclera: no appreciated abnormality, Lids and lashes: appear normal, bilaterally. 18:33 ENT: External ear(s): are unremarkable, Nose: is normal, Mouth: Lips: moist, Oral mucosa: moist, Posterior pharynx: Airway: no evidence of obstruction, patent. 18:33 Neck: ROM/movement: is normal, is supple, without pain, no range of motions limitations. 18:33 Chest/axilla: Inspection: normal, Palpation: is normal, no crepitus, no tenderness. 18:33 Cardiovascular: Rate: normal, Rhythm: regular, Edema: is not appreciated, JVD: is not appreciated. 18:33 Respiratory: the patient does not display signs of respiratory distress, Respirations: normal, no use of accessory muscles, no retractions, labored breathing, is not present, Breath sounds: are clear throughout, no decreased breath sounds, no stridor, no wheezing. 18:33 Abdomen/GI: Inspection: abdomen appears normal, Bowel sounds: active, all quadrants, Palpation: soft, in all quadrants, mild abdominal tenderness, in all quadrants, rebound tenderness, is not appreciated, voluntary guarding, is not appreciated, involuntary guarding, is not appreciated. 18:33 Back: CVA tenderness, is absent. 18:33 Skin: no rash present. 18:33 Neuro: Orientation: to person, place \T\ time. Mentation: is normal, Motor: moves all fours, strength is normal. Vital Signs: 17:16 BP 142 / 88; Pulse 90; Resp 16; Temp 97.9; Pulse Ox 100% on R/A; sg 19:00 BP 139 / 79; Pulse 83; Resp 16; Pulse Ox 100% on R/A; jb4 21:13 BP 122 / 80; Pulse 83; Resp 16; Pulse Ox 100% on R/A; jb4 22:00 BP 147 / 91; Pulse 74; Resp 16; Pulse Ox 98% on R/A; jb4 MDM: 17:51 Patient medically screened. cp 19:00 Differential diagnosis: gastritis, cholecystitis, pancreatitis, appendicitis, cp diverticulitis, viral gastroenteritis, gastroenteritis. 21:27 Data reviewed: vital signs, nurses notes, lab test result(s), radiologic studies, CT cp scan. 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 Response to treatment: the patient's symptoms have markedly improved after treatment, VSS. Nausea and pain improved with meds. Vomiting resolved and patient observed tolerating po fluids. Will discharge to home for continued monitoring. 04/11 18:12 Order name: Basic Metabolic Panel; Complete Time: 19:35 cp 04/11 19:35 Interpretation: Normal except: CO2 20; GFR 57. cp 04/11 18:12 Order name: CBC with Diff; Complete Time: 21:08 cp 04/11 19:46 Interpretation: Normal except: RBC 2.77; HGB 10.6; HCT 30.1; MCV 108.8; MCH 38.2; PLT cp 94; FAWN% 82.6; LYM% 10.1; LYMA 0.6. 04/11 18:12 Order name: Hepatic Function; Complete Time: 19:35 cp 04/11 19:35 Interpretation: Normal except: AST 41; ALK 136; BILIT 1.5; BILID 0.6; A/G 1.0. cp 04/11 18:12 Order name: Lipase; Complete Time: 19:35 cp 04/11 18:30 Order name: CT Abd/Pelvis - IV Contrast Only; Complete Time: 19:46 cp 04/11 21:01 Order name: CBC Smear Scan; Complete Time: 21:08 EDMS 04/11 19:48 Order name: US Abdomen Limited; Complete Time: 21:08 cp 04/11 18:12 Order name: IV Saline Lock; Complete Time: 18:48 cp 04/11 18:12 Order name: Labs collected and sent; Complete Time: 18:48 cp 04/11 21:10 Order name: PO challenge; Complete Time: 21:49 cp Administered Medications: 18:45 Drug: NS 0.9% 1000 ml Route: IV; Rate: 1 bolus; Site: left forearm; bp 18:45 Drug: Pepcid 20 mg Route: IVP; Site: left forearm; bp 18:45 Drug: Reglan 10 mg Route: IVP; Site: left forearm; bp 18:45 Drug: Benadryl 12.5 mg Route: IVP; Site: left forearm; bp 21:19 Drug: metroNIDAZOLE 500 mg Volume: 100 ml; Route: IVPB; Infused Over: 30 mins; Site: jb4 left wrist; 21:45 Drug: Cipro 500 mg Route: PO; jb4 21:45 Drug: Zofran (Ondansetron) 4 mg Route: IVP; Site: right antecubital; jb4 Disposition: 04/11/20 21:28 Discharged to Home. Impression: Colitis, Nausea and vomiting. - Condition is Stable. - Discharge Instructions: Nausea and Vomiting, Adult, Colitis. - Prescriptions for Bentyl 20 mg Oral Tablet - take 1 tablet by ORAL route every 6 hours As needed; 30 tablet. Zofran 4 mg Oral Tablet - take 1 tablet by ORAL route every 12 hours As needed; 20 tablet. Cipro 500 mg Oral Tablet - take 1 tablet by ORAL route every 12 hours for 10 days; 20 tablet. Metronidazole 500 mg Oral Tablet - take 1 tablet by ORAL route every 8 hours; 30 tablet. - Medication Reconciliation Form, Thank You Letter, Antibiotic Education, Prescription Opioid Use form. - Follow up: Jose Beckham MD; When: 2 - 3 days; Reason: Recheck today's complaints. - Problem is new. - Symptoms have improved. Addendum: 04/13/2020 05:32 Co-signature as Attending Physician, Gonzalez Marrero MD. m h7 Signatures: Dispatcher [employer] EDMS Carlos Casas RN RN sg Page, Corey, PA PA cp Lazaro Nelson RN RN jb4 Balaji Meléndez RN RN bp Holmes, Maurice, MD MD [id number] Corrections: (The following items were deleted from the chart) 04/11 22:49 21:28 04/11/2020 21:28 Discharged to Home. Impression: Colitis; Nausea and vomiting. jb4 Condition is Stable. Forms are Medication Reconciliation Form, Thank You Letter, Antibiotic Education, Prescription Opioid Use. Follow up: oJse Beckham; When: 2 - 3 days; Reason: Recheck today's complaints. Problem is new. Symptoms have improved. cp
[2020-04-11] MEDS ORDERED: CIPROFLOXACIN HCL 500 MG TAB ONE (21:54)
[2020-04-11] MEDS ORDERED: ONDANSETRON 4 MG/2 ML VIAL ONE (21:55)
[2020-04-11 23:08] VITALS: TEMP 97.9
[2020-04-11 23:17] VITALS: BP 147/91; O2SAT 98
== END 2020-04-11 22:49 | disposition home or self-care (01) ==
LOC: ER 17:12
DX: K52.9 Noninfective gastroenteritis and colitis, unspecified (principal); I10 Essential (primary) hypertension; Z88.0 Allergy status to penicillin; Z88.1 Allergy status to other antibiotic agents
CPT/HCPCS: 36415; 74177; 76705; 80048; 80076; 83690; 85025; 99284; J1200; J2405; J2765; J7030; Q9967

== ENCOUNTER 2020-11-18 11:43 | Emergency (ER) | payer OTHER, SELFPAY ==
[2020-11-18 12:46] LABS: Absolute Lymphocytes (CBC) 1.9 K/uL (0.7-4.9); Basophils % 0.4 % (0-1.3); Hematocrit 24.8 % (36.0-45.0); Lymphocytes % 29.9 % (15.3-44.8); MPV 8.9 fL (7.6-11.3); RBC Red Blood Cell Count 1.88 M/uL (3.86-4.86)
[2020-11-18] MEDS ORDERED: NA CHLORIDE 0.9% 1,000 ML ONE (12:47)
[2020-11-18 12:50] LABS: Protime INR 1.03
[2020-11-18 13:09] LABS: ALT/SGPT 24 U/L (12-78); AST/SGOT 58 U/L (15-37); Albumin 3.2 g/dL (3.4-5.0); Alkaline Phosphatase 135 U/L (45-117); BUN Blood Urea Nitrogen 4 mg/dL (7-18); Bicarbonate 23 mmol/L (21-32); Bilirubin Direct 0.4 mg/dL (0-0.2); Glucose Level 79 mg/dL (74-106); NT PRO-BNP 416 pg/mL (<125); Potassium 3.1 mmol/L (3.5-5.1); Protein, Total 6.1 g/dL (6.4-8.2); Sodium Level 135 mmol/L (136-145); Troponin (Emerg Dept Use Only) < 0.02 ng/mL (0.0-0.045)
[2020-11-18 13:13] LABS: Magnesium 0.9 mg/dL (1.8-2.4)
--- NOTE | 2020-11-18 13:30 | RAD REPORT ---
EXAM DESCRIPTION: RAD - Chest Single View - 11/18/2020 1:21 pm CLINICAL HISTORY: COUGH COMPARISON: Chest Single View dated 03/18/2016; Chest Single View dated 02/20/2016 FINDINGS: Lines: None. Lungs: No evidence of edema or pneumonia. Pleural: No significant pleural effusions or pneumothorax. Cardiac: The heart size is within normal limits. Bones: No acute fractures. Other: IMPRESSION: No acute cardiopulmonary disease.
[2020-11-18] MEDS ORDERED: Magnesium Sulfate 2gm IVPB 2 G/50 ML BAG IV ONE (14:36)
--- NOTE | 2020-11-18 16:11 | ER ---
Nurse's Notes [facility] Name: Madalyn Oneil Age: 55 yrs Sex: Female : 1965 Arrival Date: 11/18/2020 Time: 11:46 Bed 8 Private MD: Diagnosis: Other specified anemias-megaloblastic;Hypokalemia;Hypomagnesemia;Tobacco abuse counseling;Tobacco use;Alcohol abuse;Alcohol use, unspecified Presentation: 11/18 12:16 Chief complaint: Patient states: Sent over by PCP for low hematocrit. Pt denies kg bleeding anywhere. Coronavirus screen: Vaccine status: Patient reports receiving the 2nd dose of the covid vaccine. Date July 25, 2020 Patient reports receiving the 1st dose of the Covid vaccine. Date July 02, 2020. Ebola Screen: Patient negative for fever greater than or equal to 101.5 degrees Fahrenheit, and additional compatible Ebola Virus Disease symptoms Patient denies exposure to infectious person. Patient denies travel to an Ebola-affected area in the 21 days before illness onset. Initial Sepsis Screen: Does the patient meet any 2 criteria? No. Patient's initial sepsis screen is negative. Does the patient have a suspected source of infection? No. Patient's initial sepsis screen is negative. Risk Assessment: Do you want to hurt yourself or someone else? Patient reports no desire to harm self or others. Onset of symptoms was November 18, 2020. 12:16 Method Of Arrival: Ambulatory kg 12:16 Acuity: CONNIE 3 kg Triage Assessment: 12:20 General: Appears in no apparent distress. Behavior is calm, cooperative, appropriate kg for age, quiet. Pain: Complains of pain in face. 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 - Social history:: Smoking status: Patient reports the use of cigarette tobacco products, smokes one-half pack cigarettes per day, Patient uses alcohol, on a daily basis. - Family history:: not pertinent. Screenin:23 Abuse screen: Denies threats or abuse. Denies injuries from another. Nutritional kg screening: No deficits noted. Tuberculosis screening: No symptoms or risk factors identified. Fall Risk Fall in past 12 months (25 points). No secondary diagnosis (0 pts). IV access (20 points). Ambulatory Aid- None/Bed Rest/Nurse Assist (0 pts). Gait- Normal/Bed Rest/Wheelchair (0 pts) Mental Status- Oriented to own ability (0 pts). Total Leonard Fall Scale indicates No Risk (0-24 pts). Assessment: 12:35 General: Appears in no apparent distress. comfortable, Behavior is calm, cooperative, jd3 appropriate for age, Reports fatigue for 2-3 days. Pain: Denies pain. Neuro: Level of Consciousness is awake, alert, obeys commands, Oriented to person, place, time, situation. Cardiovascular: Denies chest pain, Capillary refill < 3 seconds Patient's skin is warm and dry. Rhythm is regular. Respiratory: Airway is patent Respiratory effort is even, unlabored, Respiratory pattern is regular, symmetrical, Denies cough, shortness of breath. GI: No signs and/or symptoms were reported involving the gastrointestinal system. : No signs and/or symptoms were reported regarding the genitourinary system. EENT: No signs and/or symptoms were reported regarding the EENT system. Derm: Skin is intact, Skin is dry, Skin is normal, Skin temperature is warm. Musculoskeletal: Circulation, motion, and sensation intact. Range of motion: intact in all extremities. 13:19 Reassessment: Patient appears in no apparent distress at this time. No changes from jd3 previously documented assessment. Patient and/or family updated on plan of care and expected duration. Pain level reassessed. Patient is alert, oriented x 3, equal unlabored respirations, skin warm/dry/pink. 14:22 Reassessment: Patient appears in no apparent distress at this time. No changes from jd3 previously documented assessment. Patient and/or family updated on plan of care and expected duration. Pain level reassessed. Patient is alert, oriented x 3, equal unlabored respirations, skin warm/dry/pink. 16:09 Reassessment: Patient appears in no apparent distress at this time. No changes from jd3 previously documented assessment. Patient and/or family updated on plan of care and expected duration. Pain level reassessed. Patient is alert, oriented x 3, equal unlabored respirations, skin warm/dry/pink. 16:48 Reassessment: Patient appears in no apparent distress at this time. Patient and/or jd3 family updated on plan of care and expected duration. Pain level reassessed. Patient is alert, oriented x 3, equal unlabored respirations, skin warm/dry/pink. reported understanding of discharge instructions. even and steady gait upon discharge. Vital Signs: 12:16 BP 132 / 90; Pulse 92; Resp 15; Temp 98.1; Pulse Ox 100% on R/A; Weight 58.97 kg (R); kg Height 5 ft. 9 in. (175.26 cm); Pain 1/10; 14:22 BP 128 / 81; Pulse 87; Resp 16 S; Pulse Ox 100% on R/A; jd3 16:09 BP 136 / 83; Pulse 87; Resp 13 S; Pulse Ox 100% on R/A; jd3 12:16 Body Mass Index 19.20 (58.97 kg, 175.26 cm) kg ED Course: 11:46 Patient arrived in ED. am2 12:02 Nino Cantu, RN is Primary Nurse. jd3 12:20 Triage completed. kg 12:23 Inserted saline lock: 20 gauge in right antecubital area, using aseptic technique. kg Blood collected. 12:24 Arm band placed on right wrist. kg 12:24 Patient has correct armband on for positive identification. kg 12:37 Tab Bonilla MD is Attending Physician. anastasia 13:21 XRAY Chest (1 view) In Process Unspecified. EDMS 16:09 Donny Cheng MD is Referral Physician. anastasia 16:48 No provider procedures requiring assistance completed. IV discontinued, intact, jd3 bleeding controlled, No redness/swelling at site. Pressure dressing applied. Administered Medications: 12:35 Drug: NS 0.9% 1000 ml Route: IV; Rate: 125 ml/hr; Site: right antecubital; jd3 14:17 Drug: Magnesium Sulfate 2 grams Route: IVPB; Infused Over: 2 hrs; Site: right ch5 antecubital; 16:24 Drug: B12 Active Chewable Tablet 1000 mcg Route: PO; jd3 16:24 Drug: Potassium Effervescent Tablet 50 mEq Route: PO; jd3 16:24 Drug: Magnesium Oxide 400 mg Route: PO; jd3 Outcome: 16:10 Discharge ordered by . anastasia 16:49 Discharged to home ambulatory, with family. jd3 16:49 Condition: stable 16:49 Discharge instructions given to patient, family, Instructed on discharge instructions, follow up and referral plans. medication usage, Demonstrated understanding of instructions, follow-up care, medications, Prescriptions given X 3. 16:49 Patient left the ED. jd3 Signatures: Dispatcher [employer] EDMS Tab Bonilla MD MD cha Moreno, Amanda am2 Davies, Jonathon, RN RN jd3 Pili Payne RN RN Rodrick Munoz RN RN ch5
--- NOTE | 2020-11-18 16:11 | EDPHYS ---
Physician Documentation [facility] Name: Madalyn Oneil Age: 55 yrs Sex: Female : 1965 Arrival Date: 11/18/2020 Time: 11:46 Bed 8 Private MD: BILL Physician Tab Bonilla HPI: 11/18 16:06 This 55 yrs old Female presents to ER via Ambulatory with complaints of anastasia hematocrit 23.6. 16:06 tobacco and etoh use, hx of anemia. Onset: The symptoms/episode began/occurred 2 day(s) anastasia ago. Severity of symptoms: At their worst the symptoms were mild in the emergency department the symptoms are unchanged. The patient has not experienced similar symptoms in the past. 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 - Social history:: Smoking status: Patient reports the use of cigarette tobacco products, smokes one-half pack cigarettes per day, Patient uses alcohol, on a daily basis. - Family history:: not pertinent. ROS: 16:06 Constitutional: Negative for fever, chills, and weight loss, Eyes: Negative for injury, anastasia pain, redness, and discharge, ENT: Negative for injury, pain, and discharge, Neck: Negative for injury, pain, and swelling, Cardiovascular: Negative for chest pain, palpitations, and edema, Respiratory: Negative for shortness of breath, cough, wheezing, and pleuritic chest pain, Abdomen/GI: Negative for abdominal pain, nausea, vomiting, diarrhea, and constipation, Back: Negative for injury and pain, : Negative for injury, bleeding, discharge, and swelling, MS/Extremity: Negative for injury and deformity, Neuro: Negative for headache, weakness, numbness, tingling, and seizure, Psych: Negative for depression, anxiety, suicide ideation, homicidal ideation, and hallucinations, Allergy/Immunology: Negative for hives, rash, and allergies, Endocrine: Negative for neck swelling, polydipsia, polyuria, polyphagia, and marked weight changes, Hematologic/Lymphatic: Negative for swollen nodes, abnormal bleeding, and unusual bruising. 16:06 Skin: Positive for pallor. Exam: 16:06 Constitutional: This is a well developed, well nourished patient who is awake, alert, anastasia and in no acute distress. Head/Face: Normocephalic, atraumatic. Eyes: Pupils equal round and reactive to light, extra-ocular motions intact. Lids and lashes normal. Conjunctiva and sclera are non-icteric and not injected. Cornea within normal limits. Periorbital areas with no swelling, redness, or edema. ENT: Nares patent. No nasal discharge, no septal abnormalities noted. Tympanic membranes are normal and external auditory canals are clear. Oropharynx with no redness, swelling, or masses, exudates, or evidence of obstruction, uvula midline. Mucous membranes moist. Neck: Trachea midline, no thyromegaly or masses palpated, and no cervical lymphadenopathy. Supple, full range of motion without nuchal rigidity, or vertebral point tenderness. No Meningismus. Chest/axilla: Normal chest wall appearance and motion. Nontender with no deformity. No lesions are appreciated. Cardiovascular: Regular rate and rhythm with a normal S1 and S2. No gallops, murmurs, or rubs. Normal PMI, no JVD. No pulse deficits. Respiratory: Lungs have equal breath sounds bilaterally, clear to auscultation and percussion. No rales, rhonchi or wheezes noted. No increased work of breathing, no retractions or nasal flaring. Abdomen/GI: Soft, non-tender, with normal bowel sounds. No distension or tympany. No guarding or rebound. No evidence of tenderness throughout. Back: No spinal tenderness. No costovertebral tenderness. Full range of motion. Skin: Warm, dry with normal turgor. Normal color with no rashes, no lesions, and no evidence of cellulitis. MS/ Extremity: Pulses equal, no cyanosis. Neurovascular intact. Full, normal range of motion. Neuro: Awake and alert, GCS 15, oriented to person, place, time, and situation. Cranial nerves II-XII grossly intact. Motor strength 5/5 in all extremities. Sensory grossly intact. Cerebellar exam normal. Normal gait. Psych: Awake, alert, with orientation to person, place and time. Behavior, mood, and affect are within normal limits. 16:06 Abdomen/GI: Inspection: abdomen appears normal, Bowel sounds: normal, Palpation: soft, in all quadrants, nontender, in all quadrants, Rectal exam: is unremarkable, rectal tone normal, Stool: guaiac negative, mass, is not appreciated, swelling, is not appreciated, Liver: no appreciated palpable abnormalities, Hernia: not appreciated. 16:13 ECG was reviewed by the Attending Physician. [facility] Vital Signs: 12:16 BP 132 / 90; Pulse 92; Resp 15; Temp 98.1; Pulse Ox 100% on R/A; Weight 58.97 kg (R); kg Height 5 ft. 9 in. (175.26 cm); Pain 1/10; 14:22 BP 128 / 81; Pulse 87; Resp 16 S; Pulse Ox 100% on R/A; jd3 16:09 BP 136 / 83; Pulse 87; Resp 13 S; Pulse Ox 100% on R/A; jd3 12:16 Body Mass Index 19.20 (58.97 kg, 175.26 cm) kg MDM: 12:37 Patient medically screened. [facility] 16:06 Data reviewed: vital signs, nurses notes, lab test result(s), EKG, radiologic studies, [facility] plain films. 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 Test interpretation: by ED physician or midlevel provider: ECG, plain radiologic studies. 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 11/18 12:20 Order name: Basic Metabolic Panel [facility] 11/18 12:20 Order name: CBC with Diff [facility] 11/18 12:20 Order name: LFT's; Complete Time: 13:48 [facility] 11/18 12:20 Order name: Magnesium; Complete Time: 13:48 [facility] 11/18 12:20 Order name: NT PRO-BNP; Complete Time: 13:48 [facility] 11/18 12:20 Order name: PT-INR; Complete Time: 13:48 [facility] 11/18 12:20 Order name: Troponin (emerg Dept Use Only); Complete Time: 13:48 [facility] 11/18 12:20 Order name: XRAY Chest (1 view); Complete Time: 13:48 [facility] 11/18 12:20 Order name: Type And Screen; Complete Time: 13:48 [facility] 11/18 12:20 Order name: Basic Metabolic Panel; Complete Time: 13:48 [facility] 11/18 12:20 Order name: CBC with Automated Diff [facility] 11/18 14:44 Order name: ABO/RH no charge; Complete Time: 16:04 [facility] 11/18 12:20 Order name: EKG; Complete Time: 12:21 [facility] 11/18 12:20 Order name: Cardiac monitoring; Complete Time: 12:22 [facility] 11/18 12:20 Order name: EKG - Nurse/Tech; Complete Time: 12:35 [facility] 11/18 12:20 Order name: IV Saline Lock; Complete Time: 12:22 [facility] 11/18 12:20 Order name: Labs collected and sent; Complete Time: 12:35 [facility] 11/18 12:20 Order name: O2 Per Protocol; Complete Time: 12:22 [facility] 11/18 12:20 Order name: O2 Sat Monitoring; Complete Time: 12:22 [facility] EC:13 Rate is 86 beats/min. Rhythm is regular. QRS [place] is Normal. AL interval is shortened anastasia at 108 msec. QRS interval is normal. QT interval is normal. No Q waves. T waves are Normal. No ST changes noted. Clinical impression: NSR w/ Non-specific ST/T Changes and No evidence of ischemia. Interpreted by me. Reviewed by me. Administered Medications: 12:35 Drug: NS 0.9% 1000 ml Route: IV; Rate: 125 ml/hr; Site: right antecubital; jd3 14:17 Drug: Magnesium Sulfate 2 grams Route: IVPB; Infused Over: 2 hrs; Site: right ch5 antecubital; 16:24 Drug: B12 Active Chewable Tablet 1000 mcg Route: PO; jd3 16:24 Drug: Potassium Effervescent Tablet 50 mEq Route: PO; jd3 16:24 Drug: Magnesium Oxide 400 mg Route: PO; jd3 Disposition Summary: 11/18/20 16:10 Discharge Ordered Location: Home [facility] Problem: new anastasia Symptoms: have improved anastasia Condition: Stable anastasia Diagnosis - Other specified anemias - megaloblastic anastasia - Hypokalemia anastasia - Hypomagnesemia anastasia - Tobacco abuse counseling anastasia - Tobacco use anastasia - Alcohol abuse anastasia - Alcohol use, unspecified anastasia Followup: anastasia - With: Private Physician - When: 2 - 3 days - Reason: Recheck today's complaints, Continuance of care, Re-evaluation by your physician Followup: anastasia - With: Donny Cheng MD - When: 2 - 3 days - Reason: Recheck today's complaints, Continuance of care, Re-evaluation by your physician Discharge Instructions: - Discharge Summary Sheet anastasia - Anemia anastasia - Potassium Content of Foods anastasia - Hypomagnesemia anastasia - Steps to Quit Smoking anastasia - Vitamin B12 and Folate Test anastasia - Steps to Quit Smoking, [id number] anastasia - Hypokalemia anastasia - Vitamin B12 Deficiency anastasia - Vitamin B12 Deficiency, Stno-ia-Chft [facility] Forms: - Medication Reconciliation Form anastasia - Thank You Letter anastasia - Antibiotic Education anastasia - Prescription Opioid Use [facility] Prescriptions: - magnesium oxide - take 400 milligram by ORAL route 2 times per day; 30 tablet; Refills: 0, [facility] Product Selection Permitted - Potassium Chloride 20 meq Oral Packet - take 1 packet by ORAL route once daily 1 packet in 6 (six) ounces of water or anastasia juice; Take after meal; 20 packet; Refills: 0, Product Selection Permitted - Protonix 40 mg Oral Tablet - take 1 tablet by ORAL route once daily; 30 tablet; Refills: 0, Product [facility] Selection Permitted Signatures: Dispatcher [employer] Tab Gutiérrez MD MD cha Davies, Jonathon, RN RN jd3 Pili Payne RN RN Rodrick Munoz RN RN ch5
[2020-11-18] MEDS ORDERED: MAGNESIUM OXIDE 400 MG TAB ONE (16:38)
[2020-11-18] MEDS ORDERED: POTASSIUM 25 MEQ EFFERV TAB ONE (16:38)
[2020-11-18] MEDS ORDERED: CYANOCOBALAMIN 1,000 MCG TAB ONE (16:44)
[2020-11-18] MEDS ORDERED: CYANOCOBALAMIN 1,000 MCG TAB PO ONE (17:00)
[2020-11-18 17:27] VITALS: TEMP 98.1; O2SAT 100
[2020-11-18 17:31] LABS: Platelet Estimate DECR; White Blood Cell Scan OK (OK)
[2020-11-18 17:32] LABS: Blood Morphology Comment NOTED (NOT SEEN); Macrocytosis 3+
[2020-11-18 17:36] VITALS: BP 136/83
--- NOTE | 2020-11-19 08:16 | EKG ---
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
== END 2020-11-18 16:49 | disposition home or self-care (01) ==
LOC: ER 11:43
DX: D53.1 Other megaloblastic anemias, not elsewhere classified (principal); E87.6 Hypokalemia; E83.42 Hypomagnesemia; F10.10 Alcohol abuse, uncomplicated; I10 Essential (primary) hypertension; Z71.6 Tobacco abuse counseling; Z88.1 Allergy status to other antibiotic agents
CPT/HCPCS: 93005; 85025; 80048; 36415; 86900; 83735; 86850; 85610; 86901; 80076; 84484; 83880; 71045; 96374; 99284; J3475; J7030

== ENCOUNTER 2022-02-27 05:37 | Inpatient (IN) | payer OTHER, SELFPAY ==
[2022-02-27] MEDS ORDERED: NA CHLORIDE 0.9% 1,000 ML ONE ×2 (06:01→10:00)
[2022-02-27] MEDS ORDERED: METOCLOPRAMIDE 10 MG/2mL INJ ONE (06:01)
[2022-02-27] MEDS ORDERED: DIPHENHYDRAMINE 50 MG/ML VIAL ONE (06:01)
[2022-02-27] MEDS ORDERED: ACETAMINOPHEN 500 MG TAB ONE (06:01)
[2022-02-27 06:20] LABS: Absolute Lymphocytes (CBC) 1.3 K/uL (0.7-4.9); Hematocrit 34.8 % (36.0-45.0); Lymphocytes % 20.6 % (15.3-44.8); MCV 99.2 fL (80-100); MPV 7.4 fL (7.6-11.3); RBC Red Blood Cell Count 3.51 M/uL (3.86-4.86)
[2022-02-27 06:44] LABS: Albumin 3.4 g/dL (3.4-5.0); Bilirubin Total 0.6 mg/dL (0.2-1.0); Potassium 3.7 mmol/L (3.5-5.1); Protein, Total 6.9 g/dL (6.4-8.2); Troponin High Sensitivity 12.1 pg/mL (<58.9)
[2022-02-27 06:46] LABS: Magnesium 1.2 mg/dL (1.6-2.4)
[2022-02-27] MEDS ORDERED: Magnesium Sulfate 2gm IVPB 2 G/50 ML BAG IV ONE ×2 (06:55→15:00)
--- NOTE | 2022-02-27 07:44 | ER ---
Nurse's Notes [facility] Name: Madalyn Oniel Age: 56 yrs Sex: Female : 1965 Arrival Date: 02/27/2022 Time: 05:40 Bed 8 Private MD: Diagnosis: Right sided numbness;Right lower extremity weakness;Hypomagnesemia Presentation: 02/27 05:40 Chief complaint: EMS states: 56 year old female complains of right side numbness and a ha1 really bad headache in the right side of her head. her reports that yesterday he noticed her right side eye drooping. 05:40 Coronavirus screen: Vaccine status: Patient reports receiving the 2nd dose of the covid ha1 vaccine. Moderna. Ebola Screen: No symptoms or risks identified at this time. Initial Sepsis Screen: Does the patient meet any 2 criteria? No. Patient's initial sepsis screen is negative. Does the patient have a suspected source of infection? No. Patient's initial sepsis screen is negative. Risk Assessment: Do you want to hurt yourself or someone else? Patient reports no desire to harm self or others. Onset of symptoms was February 27, 2022. 05:40 Method Of Arrival: EMS: [facility] ha1 05:40 Acuity: CONNIE 3 ha1 Triage Assessment: 05:40 General: Appears uncomfortable, Behavior is calm, cooperative. Pain: Complains of pain ha1 in right yarsanism Pain does not radiate. Pain currently is 10 out of 10 on a pain scale. Quality of pain is described as pressure, throbbing, Pain began gradually, Is continuous. EENT: No deficits noted. No signs and/or symptoms were reported regarding the EENT system. Neuro: Level of Consciousness is awake, alert, obeys commands, Oriented to person, place, time, situation. Neuro: Reports blurred vision in bilateral eyes headache in right parietal area. Cardiovascular: Heart tones S1 S2 present Capillary refill < 3 seconds Patient's skin is warm and dry. Respiratory: Airway is patent Trachea midline Respiratory effort is even, unlabored, Respiratory pattern is regular, symmetrical. GI: Abdomen is flat, non-distended. : No signs and/or symptoms were reported regarding the genitourinary system. Derm: Skin is pink, warm \\T\\ dry. Musculoskeletal: Range of motion: limited in right leg. 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 - Social history:: Smoking status: Patient reports the use of cigarette tobacco products, smokes one-half pack cigarettes per day, Patient uses alcohol. - Family history:: not pertinent. Screenin:16 [facility] ED Fall Risk Assessment (Adult) History of falling in the last 3 months, ha1 including since admission No falls in past 3 months (0 pts) Confusion or Disorientation No (0 pts) Intoxicated or Sedated No (0 pts) Impaired Gait Yes (1 pt) Mobility Assist Device Used No (0 pt) Altered Elimination No (0 pt) Score/Fall Risk Level 0 - 2 = Low Risk Oriented to surroundings, Maintained a safe environment, Educated pt \\T\\ family on fall prevention, incl call for assistance when getting out of bed, Assessed \\T\\ reinforced patient's understanding of fall precautions, Provided non-skid footwear. Abuse screen: Denies threats or abuse. Denies injuries from another. Nutritional screening: No deficits noted. Tuberculosis screening: No symptoms or risk factors identified. 06:19 Clinical [place] Withdrawal Assessment for Alcohol, revised (CIWA-Ar): tw5 Nausea/Vomitin - Intermittent nausea with dry heaves Headache: 5 - Severe Paroxysmal Sweats: 0 - No sweats visible Anxiety: 4 - Moderately anxious, guarded Agitation: 0 - Normal actiivty Tremor: 4 - Moderate when client's hands extended Auditory Disturbances: 0 - Not present Visual Disturbances: 1 - Very mild photosensitivity Tactile Disturbances: 1 - Very mild paresthesias Orientation and Clouding of Sensorium: 0 - Oriented and can do serial additions Total Score: 16 to 20: Modest Withdrawal. 10:29 The patient tolerated 90mL of water. No drooling, immediate coughing, gurgling, or db clearing of the throat was noted. The patient passed the bedside swallow screening. Oral medications may be given as ordered. Contact Physician for further diet orders. Assessment: 05:40 General: "Every once in a while it just feels like someone is sticking and icepick tw5 through the side of my head." Patient states that she has been drinking more the usual with the holiday season. She feels like she is having stroke like symptoms. Pain: Pain radiates to right yarsanism Pain currently is 10 out of 10 on a pain scale. Neuro: Level of Consciousness is awake, alert, obeys commands, Oriented to person, place, time, situation. Respiratory: Airway is patent Trachea midline Respiratory effort is even, unlabored. Derm: Skin is intact, is healthy with good turgor. 05:44 General: Smells of alcohol. tw5 05:44 Neuro: Speech is slurred. tw5 06:19 General: "I just want to get some rest, I really dont feel well.". Cardiovascular: tw5 Capillary refill < 3 seconds is brisk in bilateral fingers. 07:10 Reassessment: Patient appears in no apparent distress at this time. Patient is alert, db oriented x 3, equal unlabored respirations, skin warm/dry/pink. Dr. Dangelo in room confirming with patient if she will be staying in the hospital. 07:26 Reassessment: Patient appears in no apparent distress at this time. Patient and/or db family updated on plan of care and expected duration. Pain level reassessed. Patient is alert, oriented x 3, equal unlabored respirations, skin warm/dry/pink. Reassessment: patient states "I feel like crap. My right side still feels weak". General: Appears in no apparent distress. comfortable, Behavior is calm, cooperative, appropriate for age, quiet. Pain: Complains of pain in head. Neuro: No deficits noted. Level of Consciousness is awake, alert, obeys commands, Oriented to person, place, time, situation, Appropriate for age Speech is normal. Cardiovascular: No deficits noted. Respiratory: No deficits noted. Airway is patent Respiratory effort is even, unlabored, Respiratory pattern is regular, symmetrical. GI: No deficits noted. No signs and/or symptoms were reported involving the gastrointestinal system. : No deficits noted. No signs and/or symptoms were reported regarding the genitourinary system. EENT: No deficits noted. No signs and/or symptoms were reported regarding the EENT system. Derm: No deficits noted. No signs and/or symptoms reported regarding the dermatologic system. Musculoskeletal: No deficits noted. No signs and/or symptoms reported regarding the musculoskeletal system. 07:45 Reassessment: hospitalist at patient bedside. db 08:04 Reassessment: Patient appears in no apparent distress at this time. No changes from db previously documented assessment. Patient and/or family updated on plan of care and expected duration. Pain level reassessed. Patient is alert, oriented x 3, equal unlabored respirations, skin warm/dry/pink. 09:15 Reassessment: Patient appears in no apparent distress at this time. No changes from db previously documented assessment. Patient and/or family updated on plan of care and expected duration. Pain level reassessed. Patient is alert, oriented x 3, equal unlabored respirations, skin warm/dry/pink. Vital Signs: 05:40 BP 141 / 95; Pulse 69; Resp 17 S; Temp 98; Pulse Ox 98% on R/A; Weight 61.23 kg; Height ha1 5 ft. 11 in. (180.34 cm); Pain 10/10; 06:19 Pulse 72; Resp 20; Pulse Ox 99% ; tw5 06:38 BP 128 / 89; Pulse 65; Resp 16 S; Pulse Ox 100% on R/A; ha1 07:00 BP 134 / 78; Pulse 72; Resp 16; Temp 98.4(O); Pulse Ox 100% ; db 09:00 BP 145 / 86; Pulse 74; Resp 18; Pulse Ox 97% on R/A; db 05:40 Body Mass Index 18.83 (61.23 kg, 180.34 cm) ha1 NIH Stroke Scale Scores: 07:26 NIHSS Score: 1 db ED Course: 05:40 Patient arrived in ED. ha1 05:40 Donna Donato is Primary Nurse. tw5 05:40 Addison Dangelo MD is Attending Physician. rt 05:40 Arm band placed on right wrist. ha1 05:40 Patient has correct armband on for positive identification. Placed in gown. Bed in low ha1 position. Call light in reach. Side rails up X 1. 05:53 Inserted saline lock: 20 gauge in left antecubital area, using aseptic technique. Blood ha1 collected. 06:10 Triage completed. ha1 06:17 CT Head Brain wo Cont In Process Unspecified. EDMS 06:18 Magnesium Sent. tw5 06:18 Troponin High Sensitivity Sent. tw5 06:18 CMP Sent. tw5 06:19 Client placed on continuous cardiac and pulse oximetry monitoring. NIBP monitoring tw5 applied. Door closed. Noise minimized. Moved to private room. Warm blanket given. Verbal reassurance given. 06:31 Chest Single View XRAY In Process Unspecified. EDMS 07:43 Jalil Villar MD is Hospitalizing Provider. sd2 10:30 No provider procedures requiring assistance completed. Patient admitted, IV remains in db place. Administered Medications: 06:18 Drug: Reglan (metoCLOPramide) 10 mg Route: IVP; Site: left antecubital; tw5 09:12 Follow up: Response: No adverse reaction db 06:18 Drug: Benadryl (diphenhydrAMINE) 25 mg Route: IVP; Site: left antecubital; tw5 09:14 Follow up: Response: No adverse reaction db 06:18 Drug: Tylenol 1000 mg Route: PO; tw5 09:14 Follow up: Response: No adverse reaction db 06:18 Drug: NS 0.9% 1000 ml Route: IV; Rate: 1 bolus; Site: left antecubital; tw5 07:15 Follow up: Response: No adverse reaction; IV Status: Completed infusion; IV Intake: db 1000ml 06:55 Drug: Magnesium Sulfate 2 grams Route: IVPB; Infused Over: 30 mins; Site: left ha1 antecubital; 07:20 Follow up: Response: No adverse reaction; IV Status: Completed infusion; IV Intake: db 100ml Medication: 07:12 VIS not applicable for this client. db Intake: 07:15 IV: 1000ml; Total: 1000ml. db 07:20 IV: 100ml; Total: 1100ml. db Outcome: 07:43 Decision to Hospitalize by Provider. sd2 10:29 Admitted to Med/surg db 10:29 Condition: stable 10:29 Instructed on the need for admit. 10:37 Patient left the ED. db NIH Stroke Scale - NIH Stroke Score Date: 02/27/2022 Time: 07:26 Total Score = 1 1a. Level of Consciousness (LOC) - 0(Alert) 1b. Level of Consciousness (LOC) (Month \\T\\ Age) - 0(Both) 1c. LOC Commands (Open \\T\\ Closes Eyes/Regional Sales Executive) - 0(Both) 2. Best Gaze (Lateral Gaze Paresis) - 0(Normal) 3. Visual Field Loss - 1(Partial hemianopia) 4. Facial Palsy - 0(Normal) 5a. Left Arm: Motor (10-second hold) - 0(No drift) 5b. Right Arm: Motor (10-second hold) - 0(No drift) 6a. Left Leg: Motor (5-second hold - always test supine) - 0(No drift) 6b. Right Leg: Motor (5-second hold - always test supine) - 0(No drift) 7. Limb Ataxia (finger/nose \\T\\ heel/mueller - test with eyes open) - 0(Absent) 8. Sensory Loss (pinprick arms/legs/face) - 0(Normal) 9. Best Language: Aphasia (description/naming/reading) - 0(No aphasia) 10. Dysarthria (speech clarity - read or repeat words) - 0(Normal) 11. Extinction and Inattention (visual/tactile/auditory/spatial/personal) - 0(No abnormality) Initials: db Signatures: Dispatcher [employer] Donna Albert tw5 Mira Panda MD MD sd2 Candi Rebolledo RN RN ha1 Sheri Tierney RN RN db Addison Dangelo MD MD rt Corrections: (The following items were deleted from the chart) 06:18 06:18 NS 0.9% 1000 ml IV at 1 bolus in right antecubital tw5 tw5
--- NOTE | 2022-02-27 07:44 | EDPHYS ---
Physician Documentation [facility] Name: Madalyn Oneil Age: 56 yrs Sex: Female : 1965 Arrival Date: 02/27/2022 Time: 05:40 Bed 8 Private MD: BILL Physician Addison Dangelo HPI: 02/27 06:04 This 56 yrs old Female presents to ER via Unassigned with complaints of right sided rt numbness. 06:04 Onset: The symptoms/episode began/occurred at an unknown time. The symptoms are rt alleviated by nothing. The symptoms are aggravated by nothing. Associated signs and symptoms: Pertinent positives: headache. She presents to the ED with a right-sided numbness, weakness. Patient states that she had no neurologic symptoms when she went to bed, woke up at about 3 AM noting that she could not feel her right hand noted a droop to her right eye. She said that she was weak in her right leg as well. The patient reports a right-sided headache, but denies other acute complaints at this time. Symptoms are moderate in severity, no other aggravating or alleviating factors.. 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 - Social history:: Smoking status: Patient reports the use of cigarette tobacco products, smokes one-half pack cigarettes per day, Patient uses alcohol. - Family history:: not pertinent. ROS: 06:04 Constitutional: Negative for fever, chills, and weight loss, Eyes: Negative for injury, rt pain, redness, and discharge, ENT: Negative for injury, pain, and discharge, Cardiovascular: Negative for chest pain, palpitations, and edema, Respiratory: Negative for shortness of breath, cough, wheezing, and pleuritic chest pain, Abdomen/GI: Negative for abdominal pain, nausea, vomiting, diarrhea, and constipation, MS/Extremity: Negative for injury and deformity, Skin: Negative for injury, rash, and discoloration, Psych: Negative for depression, anxiety, suicide ideation, homicidal ideation, and hallucinations. 06:04 Neuro: Positive for headache, numbness, weakness. Exam: 06:04 Constitutional: This is a well developed, well nourished patient who is awake, alert, rt and in no acute distress. Head/Face: Normocephalic, atraumatic. Eyes: Pupils equal round and reactive to light, extra-ocular motions intact. Lids and lashes normal. Conjunctiva and sclera are non-icteric and not injected. Cornea within normal limits. Periorbital areas with no swelling, redness, or edema. ENT: Nares patent. No nasal discharge, no septal abnormalities noted. Tympanic membranes are normal and external auditory canals are clear. Oropharynx with no redness, swelling, or masses, exudates, or evidence of obstruction, uvula midline. Mucous membranes moist. Neck: Trachea midline, no thyromegaly or masses palpated, and no cervical lymphadenopathy. Supple, full range of motion without nuchal rigidity, or vertebral point tenderness. No Meningismus. Chest/axilla: Normal chest wall appearance and motion. Nontender with no deformity. No lesions are appreciated. Cardiovascular: Regular rate and rhythm with a normal S1 and S2. No gallops, murmurs, or rubs. Normal PMI, no JVD. No pulse deficits. Respiratory: Lungs have equal breath sounds bilaterally, clear to auscultation and percussion. No rales, rhonchi or wheezes noted. No increased work of breathing, no retractions or nasal flaring. Abdomen/GI: Soft, non-tender, with normal bowel sounds. No distension or tympany. No guarding or rebound. No evidence of tenderness throughout. MS/ Extremity: Pulses equal, no cyanosis. Neurovascular intact. Full, normal range of motion. Psych: Awake, alert, with orientation to person, place and time. Behavior, mood, and affect are within normal limits. 06:04 Neuro: Cranial nerves II through XII intact, reported sensory deficits in the right upper and right lower extremities, no left-sided deficits. Patient has 4/5 strength on the right lower extremity, 5/5 strength on all other extremities. No dysarthria, aphasia.. 06:32 ECG was reviewed by the Attending Physician. rt Vital Signs: 05:40 BP 141 / 95; Pulse 69; Resp 17 S; Temp 98; Pulse Ox 98% on R/A; Weight 61.23 kg; Height ha1 5 ft. 11 in. (180.34 cm); Pain 10/10; 06:19 Pulse 72; Resp 20; Pulse Ox 99% ; tw5 06:38 BP 128 / 89; Pulse 65; Resp 16 S; Pulse Ox 100% on R/A; ha1 07:00 BP 134 / 78; Pulse 72; Resp 16; Temp 98.4(O); Pulse Ox 100% ; db 09:00 BP 145 / 86; Pulse 74; Resp 18; Pulse Ox 97% on R/A; db 05:40 Body Mass Index 18.83 (61.23 kg, 180.34 cm) ha1 NIH Stroke Scale Scores: 07:26 NIHSS Score: 1 db MDM: 05:41 Patient medically screened. rt 08:08 Differential diagnosis: CVA, TIA, metabolic disorder, drug effects, among others. Data sd2 reviewed: vital signs, nurses notes, lab test result(s), radiologic studies. 02/27 05:55 Order name: CBC with Diff; Complete Time: 06:45 rt 02/27 05:55 Order name: CMP; Complete Time: 06:48 rt 02/27 05:55 Order name: Troponin High Sensitivity; Complete Time: 06:48 rt 02/27 05:55 Order name: Magnesium; Complete Time: 06:48 rt 02/27 08:27 Order name: Lipid Profile EDMS 02/27 08:27 Order name: Lipid Profile EDMS 02/27 05:55 Order name: Chest Single View XRAY rt 02/27 05:55 Order name: CT Head Brain wo Cont rt 02/27 08:14 Order name: Brain With Cont EDMS 02/27 08:27 Order name: Stroke Protocol EDMS 02/27 08:27 Order name: Carotid Artery Bilateral EDMS 02/27 08:38 Order name: SARS RAPID em1 02/27 09:12 Order name: SARS-COV-2 Antigen Rapid EDMS 02/27 05:56 Order name: EKG; Complete Time: 05:57 rt 02/27 05:56 Order name: EKG - Nurse/Tech; Complete Time: 07:00 rt 02/27 08:27 Order name: NPO EDMS EC:32 Rate is 67 beats/min. Rhythm is regular, Normal Sinus Rhythm with No ectopy. QRS [employer] rt is Normal. NE interval is normal. QRS interval is normal. QT interval is normal. No Q waves. T waves are Normal. No ST changes noted. Clinical impression: Normal ECG. Interpreted by me. Administered Medications: 06:18 Drug: Reglan (metoCLOPramide) 10 mg Route: IVP; Site: left antecubital; tw5 09:12 Follow up: Response: No adverse reaction db 06:18 Drug: Benadryl (diphenhydrAMINE) 25 mg Route: IVP; Site: left antecubital; tw5 09:14 Follow up: Response: No adverse reaction db 06:18 Drug: Tylenol 1000 mg Route: PO; tw5 09:14 Follow up: Response: No adverse reaction db 06:18 Drug: NS 0.9% 1000 ml Route: IV; Rate: 1 bolus; Site: left antecubital; tw5 07:15 Follow up: Response: No adverse reaction; IV Status: Completed infusion; IV Intake: db 1000ml 06:55 Drug: Magnesium Sulfate 2 grams Route: IVPB; Infused Over: 30 mins; Site: left ha1 antecubital; 07:20 Follow up: Response: No adverse reaction; IV Status: Completed infusion; IV Intake: db 100ml Disposition Summary: 02/27/22 07:43 Hospitalization Ordered Hospitalization Status: Inpatient Admission sd2 Provider: Jalil Villar Location: Telemetry/MedSurg (Inpatient) sd2 Condition: Stable sd2 Problem: new sd2 Symptoms: are unchanged sd2 Bed/Room Type: [facility] Room Assignment: 231(02/27/22 09:47) em1 Diagnosis - Right sided numbness sd2 - Right lower extremity weakness sd2 - Hypomagnesemia sd2 Forms: - Medication Reconciliation Form sd2 - SBAR form sd2 NIH Stroke Scale - NIH Stroke Score Date: 02/27/2022 Time: 07:26 Total Score = 1 1a. Level of Consciousness (LOC) - 0(Alert) 1b. Level of Consciousness (LOC) (Month \T\ Age) - 0(Both) 1c. LOC Commands (Open \T\ Closes Eyes/Gunite Nozzle Operator) - 0(Both) 2. Best Gaze (Lateral Gaze Paresis) - 0(Normal) 3. Visual Field Loss - 1(Partial hemianopia) 4. Facial Palsy - 0(Normal) 5a. Left Arm: Motor (10-second hold) - 0(No drift) 5b. Right Arm: Motor (10-second hold) - 0(No drift) 6a. Left Leg: Motor (5-second hold - always test supine) - 0(No drift) 6b. Right Leg: Motor (5-second hold - always test supine) - 0(No drift) 7. Limb Ataxia (finger/nose \T\ heel/mueller - test with eyes open) - 0(Absent) 8. Sensory Loss (pinprick arms/legs/face) - 0(Normal) 9. Best Language: Aphasia (description/naming/reading) - 0(No aphasia) 10. Dysarthria (speech clarity - read or repeat words) - 0(Normal) 11. Extinction and Inattention (visual/tactile/auditory/spatial/personal) - 0(No abnormality) Initials: db Signatures: Dispatcher [employer] Raad Zhao em1 Donna Donato tw5 Mira Panda MD MD sd2 Candi Rebolledo RN RN ha1 Addison Dangelo MD MD rt Sheri Tierney RN db Corrections: (The following items were deleted from the chart) 09:47 07:43 sd2 em1
--- NOTE | 2022-02-27 08:30 | P.HP ---
Certification for Inpatient Patient admitted to: Inpatient With expected LOS: >2 Midnights Practitioner: I am a practitioner with admitting privileges, knowledge of patient current condition, hospital course, and medical plan of care. Services: Services provided to patient in accordance with Admission requirements found in Title 42 Section 412.3 of the Code of Federal Regulations Patient History Date of Service: 02/27/22 Reason for admission: Right-sided weakness History of Present Illness: Patient is 56 years of age woke up at 3:00 in the morning with right-sided weakness involving the right arm and the right leg also have some problems swallowing and is a heavy smoker no prior history of stroke or cardiopulmonary disorder Allergies Penicillins Allergy (Mild, Verified 02/27/22 15:33) Unknown Tetracyclines Allergy (Mild, Verified 02/27/22 15:33) Unknown Home Medications: Fluoxetine HCl [Prozac] 1 tab PO DAILY 02/27/22 Losartan Potassium [Cozaar*] 1 tab PO DAILY 02/27/22 Pantoprazole [Protonix Tab*] 1 tab PO DAILY 02/27/22 - Past Medical/Surgical History Diabetic: No -: Hypertension -: Anxiety -: Peripheral neuropathy -: Peptic ulcer disease -: Tonsillectomy Review of Systems Respiratory: Cough, Shortness of Breath Neurological: Weakness, Numbness (Entire right side) Physical Examination - Vital Signs Temperature: 98.4 F Blood Pressure: 145/86 Pulse: 74 Respirations: 18 Pulse Ox (%): 97 - Physical Exam General: Alert, Oriented x3 HEENT: Atraumatic Neck: Supple Respiratory: Expiratory wheezes Cardiovascular: No edema, Regular rate/rhythm, Normal S1 S2 Gastrointestinal: Normal bowel sounds, Soft and benign Musculoskeletal: No clubbing, No swelling Integumentary: No rashes Neurological: Normal speech, Cranial nerves 3-12 intact, Normal reflexes 2+, Other (Patient has weakness on the right side is able to lift lift her right arm and right leg with some difficulty weakness is more so of the right leg compared to the right arm brisk reflexes) - Studies Laboratory Data (last 24 hrs) 02/27/22 05:55: Sodium 133 L, Potassium 3.7, BUN 5 L, Creatinine 0.59, Glucose 84, Magnesium 1.2 L*, Total Bilirubin 0.6, AST 34, ALT 25, Alkaline Phosphatase 121 H 02/27/22 05:55: WBC 6.30, Hgb 11.9 L, Hct 34.8 L, Plt Count 128 L Assessment and Plan - Problems (Diagnosis) (1) Stroke Current Visit: Yes Status: Acute Plan: Patient is 56 years of age admitted with right-sided hemiparesis apparently woke up with some weakness of the right side of the body time of onset unknown Discussed with neurology Dr. 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
[2022-02-27] MEDS: ATORVASTATIN 10 MG TAB PO SCH (08:32)
[2022-02-27] MEDS ORDERED: ENOXAPARIN 40 MG/0.4 ML SQ SCH (09:00)
[2022-02-27] MEDS: ASPIRIN EC 81 MG TAB PO SCH (09:00)
[2022-02-27] MEDS: CLOPIDOGREL 75 MG TABLET PO SCH (09:00)
[2022-02-27 09:12] LABS: SARS-CoV-2 Antigen Rapid Res Negative (Negative)
[2022-02-27 09:24] VITALS: BMI 18.8
[2022-02-27] MEDS ORDERED: ASPIRIN EC 81 MG TAB PO ONE (09:59)
[2022-02-27] MEDS ORDERED: CLOPIDOGREL 75 MG TABLET ONE (10:00)
[2022-02-27] MEDS ORDERED: ENOXAPARIN 40 MG/0.4 ML SQ ONE (10:00)
[2022-02-27] MEDS: NA CHLORIDE 0.9% 1,000 ML IV SCH ×2 (10:08→22:20)
--- NOTE | 2022-02-27 10:24 | RAD REPORT ---
EXAM DESCRIPTION: US - CP - 02/27/2022 9:33 am CLINICAL HISTORY: R sided stroke Headache, CVA symptomology COMPARISON: No comparisons TECHNIQUE: Real-time sonographic evaluation of both carotid systems was performed. Doppler interroga tion was performed with waveform tracing bilaterally. FINDINGS: Normal high resistance waveforms are noted in both external carotid arteries. The common c arotid arteries and internal carotid arteries show normal low resistance waveforms. Mild hard plaque seen left carotid bulb. Peak systolic and end diastolic velocity values and the ICA/ CCA ratios are in the non-hemodynamically significant range. Antegrade flow seen in both vertebral arteries. IMPRESSION: Mild hard plaquing noted left carotid bulb. No evidence of a hemodynamically significant stenosis.
--- NOTE | 2022-02-27 10:34 | RAD REPORT ---
EXAM DESCRIPTION: RAD - Chest Single View - 02/27/2022 6:29 am CLINICAL HISTORY: cva Chest pain. COMPARISON: Chest Single View dated 11/18/2020; Chest Single View dated 03/18/2016; Chest Single View dated 02/20/2016 FINDINGS: Portable technique limits examination quality. The lungs are grossly clear. The heart is normal in size. No displaced fractures. IMPRESSION: No acute intrathoracic process suspected.
[2022-02-27] MEDS ORDERED: LOSARTAN POTASSIUM 50 MG TABLET PO SCH (15:00)
[2022-02-27] MEDS ORDERED: INFLUENZA VACCINE (for 6+ mo) 0.5 ML DOSE IMVAC ONE (15:00)
[2022-02-27] MEDS: THIAMINE HCL 100 MG TABLET PO SCH (15:08)
[2022-02-27] MEDS: chlordiazePOXIDE HCl 5 MG CAP PO PRN (15:09)
[2022-02-27] MEDS: PANTOPRAZOLE 40MG TABLET PO SCH (15:09)
[2022-02-27] MEDS ORDERED: ONDANSETRON 4 MG/2 ML VIAL IV PRN (15:44)
[2022-02-27] MEDS ORDERED: LORazepam 2 MG/ML VIAL IV PRN (17:16)
--- NOTE | 2022-02-27 17:20 | P.PN ---
Date of Service: 02/27/22 Pt unable to swallow pills. NPO now. Strict. bought her food, against medical advise.Try Dobhoff formeds.Pt very shaky Hx of ETOH intake. Hx of anxietyAtivan, NIH scale of 3
[2022-02-27] MEDS: FOLIC ACID 1 MG TABLET PO SCH (17:42)
[2022-02-27] MEDS: ENOXAPARIN 40 MG/0.4 ML SQ SCH (18:30)
[2022-02-28] MEDS: THIAMINE HCL 100 MG TABLET PO SCH ×3 (00:18→20:34)
[2022-02-28] MEDS: ATORVASTATIN 10 MG TAB PO SCH (00:18)
[2022-02-28] MEDS: chlordiazePOXIDE HCl 5 MG CAP PO PRN (00:25)
[2022-02-28] MEDS: NA CHLORIDE 0.9% 1,000 ML IV SCH (00:37)
[2022-02-28] MEDS: HYDRALAZINE HCL 20 MG/ML VIAL IV PRN (04:56)
[2022-02-28] MEDS: ASPIRIN EC 81 MG TAB PO SCH (09:38)
[2022-02-28] MEDS: ENOXAPARIN 40 MG/0.4 ML SQ SCH (09:38)
[2022-02-28] MEDS: PANTOPRAZOLE 40MG TABLET PO SCH (09:38)
[2022-02-28] MEDS: FOLIC ACID 1 MG TABLET PO SCH (09:38)
[2022-02-28] MEDS: CLOPIDOGREL 75 MG TABLET PO SCH (09:38)
[2022-02-28] MEDS: FLUOXETINE 20 MG CAP PO SCH (09:38)
[2022-02-28] MEDS: LOSARTAN POTASSIUM 50 MG TABLET PO SCH (09:39)
--- NOTE | 2022-02-28 09:52 | P.PN ---
Subjective Date of Service: 02/28/22 Chief Complaint: Right-sided weakness Subjective: Improving (Patient is improving weakness on the right side is also improving still has some difficulty swallowing patient has a Dobbhoff planing of nervousness and anxiety) Review of Systems General: Weakness Respiratory: Cough Physical Examination - Vital Signs Temperature: 98.8 F Blood Pressure: 157/93 Pulse: 97 Respirations: 16 Pulse Ox (%): 98 - Physical Exam General: Alert, In no apparent distress, Oriented x3 Neck: Supple Respiratory: Clear to auscultation bilaterally, Normal air movement Cardiovascular: No edema Gastrointestinal: Normal bowel sounds, Soft and benign Neurological: Cranial nerves 3-12 intact (Patient is an NIH score is around 3 there is a slight drift of her right arm and right leg has improved) Assessment And Plan - Current Problems (Diagnosis) (1) Stroke Current Visit: Yes Status: Acute Plan: Bianchi is doing better weakness is improved complaining of nervousness and anxiety is an active smoker also history of daily alcohol use now has a Dobbhoff supplier nicotine patch awaiting speech evaluation Qualifiers: CVA mechanism: unspecified Qualified Code(s): I63.9 - Cerebral infarction, unspecified (2) Hypertension Current Visit: Yes Status: Acute Plan: Increase losartan 200 mg a day another dose of magnesium patient also has hyperlipidemia medication increase Qualifiers: Hypertension type: primary hypertension Qualified Code(s): I10 - Essential (primary) hypertension
[2022-02-28] MEDS ORDERED: MAGNESIUM SULFATE 1 gm IVPB 1 GM/100 ML BAG IV ONE (10:15)
--- NOTE | 2022-02-28 10:45 | RAD REPORT ---
EXAM DESCRIPTION: CT Head Without Intravenous Contrast CLINICAL HISTORY: The patient is 56 years old and is Female; Stroke, follow up TECHNIQUE: Axial computed tomography images of the head/brain without intravenous contrast. Sagitt al and coronal reformatted images were created and reviewed. This CT exam was performed using one o r more of the following dose reduction techniques: automated exposure control, adjustment of the mA and/or kV according to patient size, and/or use of iterative reconstruction technique. COMPARISON: No relevant prior studies available. FINDINGS: Brain: Mild age related periventricular white matter microangiopathic changes. Chronic l acunar infarct left external capsule. No hemorrhage. Ventricles: Unremarkable. No ventriculomegaly. Bones/joints: Unremarkable. No acute skull fracture. Soft tissues: Unremarkable. Sinuses: Unremarkable as visualized. No acute sinusitis. Mastoid air cells: No significant mastoid fluid. IMPRESSION: 1. No acute intracranial findings. No hemorrhage. 2. Mild age related periventricular white matter microangiopathic changes. Chronic lacunar infarct left external capsule. Electronically signed by: Mira Kebede MD 02/27/2022 6:31 AM SHAREPOINT ENGINEER Due to temporary technical issues with the PACS/Fluency reporting system, reports are being signed by the in house radiologists without review as a courtesy to insure prompt reporting. The interpreting radiologist is fully responsible for the content of the report.
[2022-02-28] MEDS: NICOTINE 21 MG/PAT TD SCH (11:32)
--- NOTE | 2022-02-28 15:57 | RAD REPORT ---
EXAM DESCRIPTION: Abdomen 1 View (KUB) CLINICAL HISTORY: 56 years, Female, dobhoff COMPARISON: None. IMPRESSION: Placement of Dobbhoff tube terminating in the stomach. Nonobstructive bowel gas pattern. No abnormal calcifications. No acute osseous abnormality. Lumbar levoscoliosis. Electronically signed by: Tera Romero DO 02/27/2022 11:22 PM MARINE ENGINEER [facility] Due to temporary technical issues with the PACS/Fluency reporting system, reports are being signed by the in house radiologists without review as a courtesy to insure prompt reporting. The interpreting radiologist is fully responsible for the content of the report.
[2022-02-28] MEDS: ENSURE ENLIVE 237 ML CAN PO SCH (20:34)
[2022-02-28] MEDS ORDERED: ATORVASTATIN 20 MG TAB PO SCH (21:00)
[2022-03-01 04:27] LABS: Potassium 3.7 mmol/L (3.5-5.1)
[2022-03-01 04:31] LABS: Magnesium 1.4 mg/dL (1.6-2.4)
[2022-03-01 04:49] VITALS: O2SAT 97
[2022-03-01] MEDS ORDERED: Magnesium Sulfate 2gm IVPB 2 G/50 ML BAG IV ONE (05:07)
[2022-03-01] MEDS: HYDRALAZINE HCL 20 MG/ML VIAL IV PRN (05:25)
[2022-03-01 08:55] VITALS: TEMP 97.8
[2022-03-01] MEDS: NICOTINE 21 MG/PAT TD SCH (10:38)
[2022-03-01] MEDS: FOLIC ACID 1 MG TABLET PO SCH (10:39)
[2022-03-01] MEDS: PANTOPRAZOLE 40MG TABLET PO SCH (10:39)
[2022-03-01] MEDS: ENOXAPARIN 40 MG/0.4 ML SQ SCH (10:39)
[2022-03-01] MEDS: THIAMINE HCL 100 MG TABLET PO SCH (10:40)
[2022-03-01] MEDS: CLOPIDOGREL 75 MG TABLET PO SCH (10:40)
[2022-03-01] MEDS: LOSARTAN POTASSIUM 50 MG TABLET PO SCH (10:40)
[2022-03-01] MEDS: ASPIRIN EC 81 MG TAB PO SCH (10:40)
--- NOTE | 2022-03-01 10:40 | RAD REPORT ---
EXAM DESCRIPTION: MRI - Brain W/Wo Cont - 03/01/2022 10:12 am CLINICAL HISTORY: stroke; right sided Headache, drowsiness, CVA symptomology COMPARISON: Head Brain Wo Cont dated 02/27/2022 TECHNIQUE: Multi-sequence, multiplanar MR imaging of the brain was performed with contrast. FINDINGS: No intracranial hemorrhage, hydrocephalus, or extra-axial fluid collection.[id number] e confluent T2/FLAIR hyperintensity in the periventricular and deep white matter is present compatibl e with chronic microvascular ischemic changes. No edema or shift of midline structures. No intracrani al mass. DWI is negative for acute CVA. The midline structures are normally formed. Mastoid air cells and paranasal sinuses are clear. Post-contrast images show no abnormal enhancement to suggest tumor or infection. IMPRESSION: Negative for acute CVA or other acute intracranial process. No pathologic post-contrast enhancement suspected.
[2022-03-01] MEDS: FLUOXETINE 20 MG CAP PO SCH (10:41)
[2022-03-01] MEDS: ENSURE ENLIVE 237 ML CAN PO SCH (10:41)
--- NOTE | 2022-03-01 10:42 | RAD REPORT ---
EXAM DESCRIPTION: MRI - MRA Head Wo Cont - 03/01/2022 10:11 am CLINICAL HISTORY: stroke; right sided CVA COMPARISON: Brain W/Wo Cont dated 03/01/2022 FINDINGS: 3D noncontrast [id number] MR angiography of the [place] was performed. No aneurysm, flow-limiting stenosis or vascular malformation is seen. Forward flow seen in codominant vertebral arteries. The visualized dural venous sinuses appear patent. IMPRESSION: No significant flow abnormality of the [place] is identified.
--- NOTE | 2022-03-01 10:47 | RAD REPORT ---
EXAM DESCRIPTION: MRI - MRA Neck W/Wo Cont - 03/01/2022 10:11 am CLINICAL HISTORY: stroke; right sided Headache, drowsiness, CVA symptomology COMPARISON: No comparisons FINDINGS: Contrast enhance 2D [id number] MR angiography of the neck vessels was performed. A left aortic arch is noted with normal branching pattern of the great vessels. Bilateral subclavian and common carotid arteries are widely patent. No significant stenosis is seen involving either internal carotid artery. Symmetric codominant vertebral arteries. IMPRESSION: No significant flow abnormality of the neck vessels identified.
[2022-03-01 12:07] VITALS: BP 138/82
--- NOTE | 2022-03-01 12:26 | P.DS ---
Admission Date: 02/27/22 Discharge Date: 03/01/22 Disposition: ROUTINE DISCHARGE Discharge Condition: FAIR Reason for Admission: Right-sided weakness - Problems (1) Stroke Current Visit: Yes Status: Acute Qualifiers: CVA mechanism: unspecified Qualified Code(s): I63.9 - Cerebral infarction, unspecified (2) Hypertension Current Visit: Yes Status: Acute Qualifiers: Hypertension type: primary hypertension Qualified Code(s): I10 - Essential (primary) hypertension Brief History of Present Illness: Patient is 56 years of age woke up at 3:00 in the morning with right-sided weakness involving the right arm and the right leg also have some problems swallowing and is a heavy smoker no prior history of stroke or cardiopulmonary disorder Hospital Course: Patient is 56 years of age admitted with right-sided weakness no evidence of stroke on MRI or CT scan dense right-sided weakness improved spontaneously she has some difficulty swallowing on admission is also resolved at the time of discharge she was alert oriented responsive cooperative weakness on the right side had improved substantially patient was able to swallow defied barium sw allow was also done patient states she is she was able to eat and drink Dobbhoff tube was removed patient discharged to follow-up with urology as an outpatient been advised to quit smoking history of excess alcohol intake and had magnesium level was a little low we will give her another dose prior to discharge vital signs are all stable blood pressure controlled Vital Signs/Physical Exam: Temp Pulse Resp BP Pulse Ox 97.8 F 82 18 138/82 100 03/01/22 12:00 03/01/22 12:00 03/01/22 12:00 03/01/22 12:00 03/01/22 12:00 Laboratory Data at Discharge: WBC 6.30 K/uL (4.3-10.9) 02/27/22 05:55 Hgb 11.9 g/dL (12.0-15.0) L 02/27/22 05:55 Hct 34.8 % (36.0-45.0) L 02/27/22 05:55 Plt Count 128 K/uL (152-406) L 02/27/22 05:55 Sodium 127 mmol/L (136-145) L 03/01/22 03:30 Potassium 3.7 mmol/L (3.5-5.1) 03/01/22 03:30 BUN 8 mg/dL (7-18) 03/01/22 03:30 Creatinine 0.52 mg/dL (0.55-1.02) L 03/01/22 03:30 Glucose 78 mg/dL (74-106) 03/01/22 03:30 Magnesium 1.4 mg/dL (1.6-2.4) L* 03/01/22 03:30 Total Bilirubin 0.6 mg/dL (0.2-1.0) 02/27/22 05:55 AST 34 U/L (15-37) 02/27/22 05:55 ALT 25 U/L (13-56) 02/27/22 05:55 Alkaline Phosphatase 121 U/L (45-117) H 02/27/22 05:55 Triglycerides 81 mg/dL (<150) 02/28/22 04:20 Cholesterol 215 mg/dL (<200) H 02/28/22 04:20 HDL Cholesterol 152 mg/dL (40-60) H 02/28/22 04:20 Cholesterol/HDL Ratio 1.41 02/28/22 04:20 Home Medications: Fluoxetine HCl [Prozac] 1 tab PO DAILY 02/27/22 Losartan Potassium [Cozaar*] 1 tab PO DAILY 02/27/22 Pantoprazole [Protonix Tab*] 1 tab PO DAILY 02/27/22 Aspirin 81 mg PO DAILY #30 tab.chew 03/01/22 New Medications: Aspirin 81 mg PO DAILY #30 tab.chew Followup: Rickey Zurita MD [ASSOCIATE-ACTIVE - CAN ADMIT] - Unknown,U [Primary Care Provider] -
--- NOTE | 2022-03-01 12:43 | RAD REPORT ---
EXAM DESCRIPTION: RAD - Barium Swallow Modified - 03/01/2022 12:12 pm CLINICAL HISTORY: HX of stroke COMPARISON: Abdomen Exam Limited dated 04/11/2020 TECHNIQUE: The patient was given liquid, semi-solid and solid forms of barium. Lateral view fluorosc opic imaging was performed in conjunction with speech pathology service. FINDINGS: Laryngeal penetration: Cleared Inconsistent piecemeal anterior to posterior transfer FLUORO TIME: 1:11 MIN
--- NOTE | 2022-03-02 13:44 | EKG ---
Test Date: 2022-02-27 Test Time: 06:28:05 Toy Painter: ALBERTA MEASUREMENT RESULTS: Intervals: Rate: 67 [place]: 152 QRSD: 84 QT: 454 QTc: 479 [place]ett: P: 69 [place]: 152 QRS: 60 T: 70 INTERPRETIVE STATEMENTS: Normal sinus rhythm Normal ECG Compared to ECG 11/18/2020 12:27:12 Short [place] interval no longer present Electronically Signed On 03-02-22 13:39:46 DISHWASHER PREPARER by Riky Brar
== END 2022-03-01 13:12 | disposition home or self-care (01) | DRG 57 ==
LOC: ER 05:37 → ERHOLD 08:22 → 2ND 10:17
PROVIDERS: ADMIT Internal Medicine Sleep Medicine; ATTEND Internal Medicine Sleep Medicine
DX: G81.91 Hemiplegia, unspecified affecting right dominant side (principal); I10 Essential (primary) hypertension; E78.5 Hyperlipidemia, unspecified; F41.9 Anxiety disorder, unspecified; E83.42 Hypomagnesemia; F17.210 Nicotine dependence, cigarettes, uncomplicated; R51.9 Headache, unspecified; R20.0 Anesthesia of skin; R29.701 NIHSS score 1; Z88.0 Allergy status to penicillin; Z88.1 Allergy status to other antibiotic agents; Z79.82 Long term (current) use of aspirin; Z79.899 Other long term (current) drug therapy; Z20.822 Contact with and (suspected) exposure to COVID-19
CPT/HCPCS: 36415; 70450; 70544; 70549; 70553; 71045; 74018; 74230; 80048; 80053; 80061; 83735; 84484; 85025; 87811; 92611; 93005; 93880; 96361; 96365; 96375; 99285; A9577; J0360; J1200; J1650; J2405; J2765; J3475; J7030

== ENCOUNTER 2022-06-24 12:56 | Inpatient (IN) | payer SELFPAY ==
--- OUTSIDE RECORDS SUMMARY | 2022-06-24 13:00 | XMS REPORT | Continuity of Care Document ---
:1965 Author Organization [facility] t Address [address] [facility] [place] [address] Care Team Providers Name Role Phone Unavailable Unavailable Unavailable Problems This patient has no known problems. Allergies, Adverse Reactions, Alerts This patient has no known allergies or adverse reactions. Medications This patient has no known medications. Procedures This patient has no known procedures. Encounters Start End Encounter Admission Attending Care Care Encounter Source Date/Time Date/Time Type Type Clinicians Facility Department ID 2022-05-06 2022-05-06 Outpatient [facility] [id number] Diaz 13:54:05 13:54:05 [id number] F [facility]ant 2022-04-21 2022-04-21 Outpatient [facility] [id number] Diaz 11:20:36 11:20:36 [id number] F Gallant 2022-03-11 2022-03-11 Outpatient [facility] [id number] Diaz 11:49:45 11:49:45 [id number] [facility] Results Test Description Test Time Test Comments Results Result Comments Source MAGNESIUM 2022-04-22 06:44:38 Test Item Value Reference Range Interpretation Comme nts MAGNESIUM (test code = 1.4 MG/DL 1.6-2.6 L [facility] has important pathology staff 2226) changes effecti ve 05/05/2022. New pathology staff will provide uninterrupted, excellent patient care and clinical co nsultation. See URL: [email or web address]. UNLESS OTHERWISE INDIC ATED, ALL TESTING PERFORMED AT [facility], [place]. [address] [place] [address] CLIA: [id number], CAP: [id number] COMPREHENSIVE METABOLIC [id number] 05:24:08 Test Item Value Reference Range Interpretation Comments GLUCOSE (test code = 92 MG/DL 70-99 2217) BUN (test code = 10 MG/DL 6-20 2207) CREATININE (test 0.78 MG/DL 0.60-1.30 code = 2213) eGFR (2020 CKD-EPI) 90 ML/MIN/1.73 >60 (test code = 50198) CALC BUN/CREAT (test 13 RATIO 6-28 code = 223) SODIUM (test code = 129 MEQ/L 133-146 L 2230) POTASSIUM (test code 4.4 MEQ/L 3.5-5.4 = 2227) CHLORIDE (test code 93 MEQ/L 95-107 L = 2214) CARBON DIOXIDE (test 25 MEQ/L 19-31 code = 2205) CALCIUM (test code = 10.1 MG/DL 8.5-10.5 2208) PROTEIN, TOTAL (test 6.8 G/DL 6.1-8.3 code = 2228) ALBUMIN (test code = 4.4 G/DL 3.5-5.2 2200) CALC GLOBULIN (test 2.4 G/DL 1.9-3.7 code = 2239) CALC A/G RATIO (test 1.8 RATIO 1.0-2.6 code = 2233) BILIRUBIN, TOTAL 0.3 MG/DL See_Comment [Automated message] (test code = 2206) The syste m which generated this result transmit loi reference range : <=1.2. The refe rence range was not u sed to interpret th is result as normal/abnormal . ALKALINE PHOSPHATASE 88 U/L 40-133 (test code = 2203) AST (test code = 19 U/L 9-40 2217) ALT (test code = 14 U/L 5-40 2218)
[2022-06-24] MEDS ORDERED: ONDANSETRON 4 MG/2 ML VIAL ONE ×2 (13:19→18:31)
[2022-06-24] MEDS ORDERED: Ringers Lactate 1,000 ML IV ONE (13:19)
[2022-06-24] MEDS ORDERED: LORazepam 2 MG/ML VIAL ONE (13:19)
[2022-06-24 13:44] LABS: Absolute Lymphocytes (CBC) 0.3 K/uL (0.7-4.9); Hematocrit 36.7 % (36.0-45.0); Lymphocytes % 4.5 % (15.3-44.8); MCV 94.9 fL (80-100); MPV 7.4 fL (7.6-11.3); RBC Red Blood Cell Count 3.87 M/uL (3.86-4.86)
[2022-06-24 13:54] LABS: Albumin 4.2 g/dL (3.4-5.0); Bilirubin Total 1.7 mg/dL (0.2-1.0); Potassium 3.7 mEq/L (3.5-5.1); Protein, Total 7.8 g/dL (6.4-8.2)
--- NOTE | 2022-06-24 14:47 | RAD REPORT ---
EXAM DESCRIPTION: CT - Abdomen Pelvis W Contrast - 06/24/2022 2:20 pm CLINICAL HISTORY: Abdominal pain COMPARISON: 2020 TECHNIQUE: Computed axial tomography of the abdomen pelvis was obtained. 100 cc Isovue-300 was admin istered intravenously. Oral contrast was not requested which limits evaluation of bowel and appendix All CT scans are performed using dose optimization technique as appropriate and may include automated exposure control or mA/KV adjustment according to patient size. FINDINGS: Mild fatty liver The spleen, pancreas, adrenals and kidneys are unremarkable No adnexal mass No evidence of diverticulitis. The wall of the right proximal right colon is moderately thickened. No free air. Moderate bladder distention. Borderline gallbladder distention Disc space narrowing with subchondral sclerosis and cortical regularity vertebral endplates L2 and L3 IMPRESSION: Moderate right colitis Disc space narrowing with subchondral sclerosis and cortical regularity vertebral endplates L2 and L3 may be secondary to degenerative changes, inflammation or infection and should be correlated clinica lly
[2022-06-24] MEDS ORDERED: METRONIDAZOLE 500mg IVPB 500 MG/100 ML BAG IV ONE (15:22)
[2022-06-24] MEDS ORDERED: CIPROFLOXACIN 400mg IV 400 MG/200 ML BAG IV ONE (15:22)
--- NOTE | 2022-06-24 15:35 | ER ---
Nurse's Notes [facility] Name: Madalyn Oneil Age: 57 yrs Sex: Female : 1965 Arrival Date: 06/24/2022 Time: 12:56 Bed Ultrasound Private MD: Diagnosis: Colitis;Vomiting;Dehydration;Hyponatremia Presentation: 06/24 13:04 Chief complaint: EMS states: toned out to patient home for N/V. Coronavirus screen: At ld1 this time, the client does not indicate any symptoms associated with coronavirus-19. Ebola Screen: No symptoms or risks identified at this time. Initial Sepsis Screen: Does the patient meet any 2 criteria? No. Patient's initial sepsis screen is negative. Does the patient have a suspected source of infection? No. Patient's initial sepsis screen is negative. Risk Assessment: Do you want to hurt yourself or someone else? Patient reports no desire to harm self or others. Onset of symptoms was June 24, 2022 at 13:05. 13:04 Method Of Arrival: EMS: [facility] ld1 13:04 Acuity: CONNIE 3 ld1 Triage Assessment: 13:05 General: Appears in no apparent distress. comfortable, Behavior is calm, cooperative, ld1 appropriate for age. Pain: Denies pain. EENT: No signs and/or symptoms were reported regarding the EENT system. Neuro: Level of Consciousness is awake, alert, obeys commands, Oriented to person, place, time, situation. Cardiovascular: Capillary refill < 3 seconds Patient's skin is warm and dry. Respiratory: Airway is patent Respiratory effort is even, unlabored. GI: Abdomen is flat, non-distended, Reports nausea, vomiting. : No signs and/or symptoms were reported regarding the genitourinary system. Derm: No signs and/or symptoms reported regarding the dermatologic system. Musculoskeletal: No signs and/or symptoms reported regarding the musculoskeletal system. Historical: - Allergies: 13:05 PENICILLINS; ld1 13:05 TETRACYCLINES; ld1 - PMHx: 13:05 Anemia; Diverticulitis; gastritis; GERD; Hypertension; Pancreatitis; ld1 - PSHx: 13:05 Tonsillectomy; ld1 - Immunization history:: Adult Immunizations up to date, Client reports receiving the 2nd dose of the Covid vaccine. - Social history:: Smoking status: Patient denies any tobacco usage or history of. Patient/guardian denies using alcohol. Screenin:06 [facility] ED Fall Risk Assessment (Adult) History of falling in the last 3 months, ld1 including since admission. Abuse screen: Denies threats or abuse. Denies injuries from another. Nutritional screening: No deficits noted. Tuberculosis screening: No symptoms or risk factors identified. Assessment: 13:06 Reassessment: See triage assessment. ld1 17:42 Reassessment: Lactate 2.4. ld1 Vital Signs: 13:04 BP 160 / 94; Pulse 100; Resp 23; Temp 97.9(O); Pulse Ox 99% on R/A; Weight 56.7 kg; ld1 Height 5 ft. 4 in. ; Pain 0/10; 15:22 BP 176 / 84; Pulse 86; Resp 18; Pulse Ox 99% on R/A; ld1 16:26 BP 162 / 96; Pulse 93; Resp 18; Pulse Ox 96% on R/A; ld1 17:19 BP 163 / 101; Pulse 97; Resp 18; Pulse Ox 96% on R/A; ld1 13:04 Body Mass Index 21.46 (56.70 kg, 162.56 cm) ld1 13:04 Pain Scale: Adult ld1 ED Course: 13:03 Patient arrived in ED. ld1 13:05 Triage completed. ld1 13:05 Chandan Martinez PA is PHCP. [facility] 13:05 Addison Dangelo MD is Attending Physician. jm 13:05 Arm band placed on right wrist. ld1 13:06 Patient has correct armband on for positive identification. Placed in gown. Bed in low ld1 position. Call light in reach. Side rails up X2. phone operator on. Pulse ox on. NIBP on. Door closed. Noise minimized. Warm blanket given. 13:06 No provider procedures requiring assistance completed. ld1 13:20 Joanne Chaidez, ABIGAIL is Primary Nurse. ld1 13:30 Inserted saline lock: 20 gauge in right forearm, using aseptic technique. Blood ld1 collected. 14:21 CT Abd/Pelvis - IV Contrast Only In Process Unspecified. EDMS 15:34 Hao Bowman is Hospitalizing Provider. jmm 15:35 Seven Nolasco MD is Hospitalizing Provider. jmm 15:37 US Abdomen Limited In Process Unspecified. EDMS Administered Medications: 13:30 Drug: Lactated Ringers Solution IV 1000 ml Route: IV; Rate: 1000 bolus; Site: right ld1 forearm; 15:37 Follow up: Response: No adverse reaction; IV Status: Completed infusion; IV Intake: ld1 1000ml 13:30 Drug: Ondansetron IVP 4 mg Route: IVP; Site: right forearm; ld1 15:37 Follow up: Response: No adverse reaction ld1 13:30 Drug: Ativan IVP 1 mg Route: IVP; Site: right forearm; ld1 15:37 Follow up: Response: No adverse reaction ld1 15:36 Drug: metroNIDAZOLE IVPB 500 mg Volume: 100 ml; Route: IVPB; Rate: 200 ml/hr; Infused ld1 Over: 30 mins; Site: right forearm; 16:42 Drug: Ciprofloxacin IVPB 400 mg Volume: 200 ml; Route: IVPB; Infused Over: 60 mins; ld1 Site: right wrist; Medication: 13:06 VIS not applicable for this client. ld1 Intake: 15:37 IV: 1000ml; Total: 1000ml. ld1 Outcome: 15:34 Decision to Hospitalize by Provider. indum 19:49 Patient left the ED. aa9 Signatures: Dispatcher [employer] EDMS Chandan Martinez PA PA jmm Sims, Lauren, RN RN ld1 Debbi Conley RN RN aa9
--- NOTE | 2022-06-24 15:35 | EDPHYS ---
Physician Documentation [facility] Name: Madalyn Oneil Age: 57 yrs Sex: Female : 1965 Arrival Date: 06/24/2022 Time: 12:56 Bed Ultrasound Private MD: BILL Physician Addison Dangelo HPI: 06/24 13:06 This 57 yrs old Female presents to ER via EMS with complaints of Nausea/Vomiting. jmm 13:06 The patient presents to the emergency department with nausea, vomiting. Onset: The jmm symptoms/episode began/occurred acutely, last night. Possible causes: unknown. The symptoms are aggravated by nothing. The symptoms are alleviated by nothing. This is a 57 year old female with a history of anemia, diverticulitis, gerd, gastricitis, pancreatitis that presents to the ED. Historical: - Allergies: 13:05 PENICILLINS; ld1 13:05 TETRACYCLINES; ld1 - PMHx: 13:05 Anemia; Diverticulitis; gastritis; GERD; Hypertension; Pancreatitis; ld1 - PSHx: 13:05 Tonsillectomy; ld1 - Immunization history:: Adult Immunizations up to date, Client reports receiving the 2nd dose of the Covid vaccine. - Social history:: Smoking status: Patient denies any tobacco usage or history of. Patient/guardian denies using alcohol. ROS: 19:01 Constitutional: Negative for fever, chills, and weight loss, Cardiovascular: Negative jmm for chest pain, palpitations, and edema, Respiratory: Negative for shortness of breath, cough, wheezing, and pleuritic chest pain. 19:01 Abdomen/GI: Positive for nausea and vomiting. 19:01 All other systems are negative. Exam: 19:01 Constitutional: This is a well developed, well nourished patient who is awake, alert, jmm and in no acute distress. Head/Face: atraumatic. Eyes: EOMI, no conjunctival erythema appreciated ENT: Moist Mucus Membranes Neck: Trachea midline, Supple Chest/axilla: Normal chest wall appearance and motion. Cardiovascular: Regular rate and rhythm. No edema appreciated Respiratory: Normal respirations, no respiratory distress appreciated 19:01 Back: Normal ROM Skin: General appearance color normal MS/ Extremity: Moves all extremities, no obvious deformities appreciated, no edema noted to the lower extremities Neuro: Awake and alert Psych: Behavior is normal, Mood is normal, Patient is cooperative and pleasant 19:01 Abdomen/GI: Inspection: abdomen appears normal, Bowel sounds: normal, Palpation: soft, mild abdominal tenderness, in all quadrants. Vital Signs: 13:04 BP 160 / 94; Pulse 100; Resp 23; Temp 97.9(O); Pulse Ox 99% on R/A; Weight 56.7 kg; ld1 Height 5 ft. 4 in. ; Pain 0/10; 15:22 BP 176 / 84; Pulse 86; Resp 18; Pulse Ox 99% on R/A; ld1 16:26 BP 162 / 96; Pulse 93; Resp 18; Pulse Ox 96% on R/A; ld1 17:19 BP 163 / 101; Pulse 97; Resp 18; Pulse Ox 96% on R/A; ld1 13:04 Body Mass Index 21.46 (56.70 kg, 162.56 cm) ld1 13:04 Pain Scale: Adult ld1 MDM: 13:06 Patient medically screened. [facility] 18:16 ED course: Patient does not meet SIRS criteria. . [facility] 06/24 13:06 Order name: CBC with Diff; Complete Time: 13:49 [facility] 06/24 13:06 Order name: CMP; Complete Time: 13:57 [facility] 06/24 13:06 Order name: Lipase; Complete Time: 13:57 [facility] 06/24 17:43 Order name: Lactate w/ 2H reflex if indic.; Complete Time: 17:43 [facility] 06/24 13:57 Order name: CT Abd/Pelvis - IV Contrast Only; Complete Time: 15:01 [facility] 06/24 15:13 Order name: US Abdomen Limited; Complete Time: 15:56 [facility] 06/24 13:06 Order name: IV Saline Lock; Complete Time: 13:30 [facility] 06/24 13:06 Order name: Labs collected and sent; Complete Time: 13:30 [facility] Administered Medications: 13:30 Drug: Lactated Ringers Solution IV 1000 ml Route: IV; Rate: 1000 bolus; Site: right ld1 forearm; 15:37 Follow up: Response: No adverse reaction; IV Status: Completed infusion; IV Intake: ld1 1000ml 13:30 Drug: Ondansetron IVP 4 mg Route: IVP; Site: right forearm; ld1 15:37 Follow up: Response: No adverse reaction ld1 13:30 Drug: Ativan IVP 1 mg Route: IVP; Site: right forearm; ld1 15:37 Follow up: Response: No adverse reaction ld1 15:36 Drug: metroNIDAZOLE IVPB 500 mg Volume: 100 ml; Route: IVPB; Rate: 200 ml/hr; Infused ld1 Over: 30 mins; Site: right forearm; 16:42 Drug: Ciprofloxacin IVPB 400 mg Volume: 200 ml; Route: IVPB; Infused Over: 60 mins; ld1 Site: right wrist; Disposition Summary: 06/24/22 15:34 Hospitalization Ordered Hospitalization Status: Inpatient Admission jmm Location: Telemetry/MedSur (Inpatient) jmm Condition: Stable jmm Problem: new jmm Symptoms: have improved jmm Bed/Room Type: Standard jmm Provider: Seven Nolasco(06/24/22 15:35) jmm Room Assignment: 222(06/24/22 17:27) dw Diagnosis - Colitis jmm - Vomiting jmm - Dehydration jmm - Hyponatremia jmm Forms: - Medication Reconciliation Form jmm - SBAR form jmm Addendum: 06/26/2022 06:59 Co-signature as Attending Physician, Addison Dangelo MD I reviewed the patient's care r t provided by the Advanced Practice Provider and agree with the diagnosis and treatment plan. Signatures: Dispatcher [employer] Jerica Kwan, RN RN dw Chandan Martinez PA PA jmm Sims, Lauren, RN RN ld1 Addison Dangelo MD MD rt Corrections: (The following items were deleted from the chart) 06/24 15:35 15:34 Hao Bowman [facility] 17:27 15:34 jmm dw
--- NOTE | 2022-06-24 15:40 | P.HP ---
Certification for Inpatient Patient admitted to: Inpatient With expected LOS: >2 Midnights Patient will require the following post-hospital care: None Practitioner: I am a practitioner with admitting privileges, knowledge of patient current condition, hospital course, and medical plan of care. Services: Services provided to patient in accordance with Admission requirements found in Title 42 Section 412.3 of the Code of Federal Regulations Patient History Date of Service: 06/24/22 Primary Care Provider: Alexia Reason for admission: Colitis, dehydration, hyponatremia History of Present Illness: This is a 57-year-old female with past medical history significant for anemia, diverticulitis, gastritis, GERD, hypertension, anxiety and pancreatitis. Patient comes to the emergency room with complaints of shortness of breath, nausea vomiting, and weakness. Patient stated her symptoms started today. She also reported onset of coughing with dizziness and lightheadedness. She denies any chest pain or any other contributing factor. In the ER, her labs are significant for hyponatremia with a sodium is 125 CO2 of 17. Patient will be admitted under care of Dr. Bowman Allergies Penicillins Allergy (Mild, Verified 02/27/22 15:33) Unknown Tetracyclines Allergy (Mild, Verified 02/27/22 15:33) Unknown Home Medications: Fluoxetine HCl [Prozac] 1 tab PO DAILY 02/27/22 Losartan Potassium [Cozaar*] 1 tab PO DAILY 02/27/22 Pantoprazole [Protonix Tab*] 1 tab PO DAILY 02/27/22 Aspirin 81 mg PO DAILY #30 tab.chew 03/01/22 - Past Medical/Surgical History Diabetic: No -: Hypertension -: Anxiety -: Peripheral neuropathy -: Peptic ulcer disease -: Tonsillectomy - Social History Alcohol use: Yes CD- Drugs: No Caffeine use: Yes Place of Residence: Home Review of Systems 10-point ROS is otherwise unremarkable General: Weakness Respiratory: Cough Gastrointestinal: Nausea, Vomiting Neurological: Weakness Physical Examination - Vital Signs Temperature: 97.9 F Blood Pressure: 161/97 Pulse: 99 Respirations: 18 Pulse Ox (%): 98 - Physical Exam General: Alert, Oriented x3, Other (weak, lethargic) HEENT: Atraumatic, Normocephalic, PERRLA Neck: Supple, 2+ carotid pulse no bruit Respiratory: Clear to auscultation bilaterally, Normal air movement Cardiovascular: No edema, Normal pulses, Regular rate/rhythm Capillary refill: <2 Seconds Gastrointestinal: Normal bowel sounds Musculoskeletal: No clubbing, No swelling Integumentary: No rashes, No breakdown, No significant lesion Neurological: Sensation intact, Other (weak/lethargic) - Studies Laboratory Data (last 24 hrs) 06/24/22 13:29: Sodium 125 L, Potassium 3.7, BUN 8, Creatinine 0.71, Glucose 103, Total Bilirubin 1.7 H, AST 24, ALT 19, Alkaline Phosphatase 116, Lipase 35 06/24/22 13:29: WBC 7.30, Hgb 12.7, Hct 36.7, Plt Count 193 Assessment and Plan - Plan Assessment Colitis Dehydration Hyponatremia Hypertension GERD Anxiety Plan Received 1 L of LR in the ED, continue IV fluids at 100 cc an hour Continue IV antibiotics Resume home medications when appropriate Continue clear liquids advance diet as tolerated DVT PPx-Lovenox Full code Discharge Plan: Home Plan to discharge in: Greater than 2 days - Advance Directives Does patient have a Living Will: No Does patient have a Durable POA for Healthcare: No - Code Status/Comfort Care Code Status Assessed: Yes (Full code) Critical Care: No Time Spent Managing Pts Care (In Minutes): 50
--- NOTE | 2022-06-24 15:56 | RAD REPORT ---
EXAM DESCRIPTION: US - Abdomen Exam Limited - 06/24/2022 3:35 pm CLINICAL HISTORY: Abdominal pain. COMPARISON: 2020 FINDINGS: Borderline gallbladder distention The gallbladder wall is not thickened. A gallstone is not seen. The biliary tree is normal caliber. IMPRESSION: Borderline gallbladder distention
[2022-06-24] MEDS ORDERED: ACETAMINOPHEN 500 MG TAB PO PRN (16:08)
[2022-06-24] MEDS ORDERED: ALBUTEROL 2.5 MG/3 ML NEB SOL NEB PRN (16:08)
[2022-06-24] MEDS ORDERED: SODIUM CHLORIDE 0.9% 10ML INJ IV PRN (16:11)
[2022-06-24] MEDS ORDERED: METRONIDAZOLE 500mg IVPB 500 MG/100 ML BAG IV SCH (17:00)
[2022-06-24] MEDS: ONDANSETRON 4 MG/2 ML VIAL IV PRN (18:27)
[2022-06-24] MEDS: NA CHLORIDE 0.9% 1,000 ML IV SCH (20:35)
[2022-06-24] MEDS: Levofloxacin 750mg IV 750 MG/150 ML BAG IV SCH (20:35)
[2022-06-24 20:47] LABS: Potassium 3.7 mEq/L (3.5-5.1)
[2022-06-24 20:59] VITALS: BMI 15.5
[2022-06-24] MEDS: PANTOPRAZOLE 40 MG INJ IVP SCH (21:13)
[2022-06-25] MEDS ORDERED: METRONIDAZOLE 500mg IVPB 500 MG/100 ML BAG IV SCH
[2022-06-25] MEDS: ONDANSETRON 4 MG/2 ML VIAL IV PRN ×2 (00:59→07:58)
[2022-06-25 04:05] LABS: Potassium 3.8 mEq/L (3.5-5.1)
[2022-06-25] MEDS ORDERED: LORazepam 2 MG/ML VIAL IV ONE ×2 (04:50→21:45)
[2022-06-25 05:59] LABS: Specific Gravity 1.021 (1.005-1.030); Urine Bacteria None Seen /HPF (<20); Urine Bilirubin NEGATIVE (Negative); Urine Blood Negative (Negative); Urine Clarity Clear (Clear); Urine Color Light-Yellow (Yellow); Urine Glucose NEGATIVE (Negative); Urine Protein TRACE (Negative); Urine RBC <5 /HPF (None Seen); Urine Urobilinogen 1+ (Normal); Urine pH 7.5 (5.0-7.0)
[2022-06-25] MEDS ORDERED: PANTOPRAZOLE 40MG TABLET PO SCH (06:30)
[2022-06-25] MEDS: ENOXAPARIN 40 MG/0.4 ML SQ SCH (07:51)
[2022-06-25] MEDS: NA CHLORIDE 0.9% 1,000 ML IV SCH ×3 (07:51→23:00)
[2022-06-25] MEDS: FLUOXETINE 20 MG CAP PO SCH (07:52)
[2022-06-25] MEDS: PANTOPRAZOLE 40 MG INJ IVP SCH (07:52)
[2022-06-25] MEDS: LOSARTAN POTASSIUM 50 MG TABLET PO SCH (08:21)
[2022-06-25] MEDS ORDERED: LOSARTAN POTASSIUM 50 MG TABLET PO SCH (09:00)
[2022-06-25] MEDS ORDERED: POTASSIUM CL SA 10 MEQ TAB PO ONE ×4 (09:00→21:44)
[2022-06-25 13:06] LABS: Potassium 3.5 mEq/L (3.5-5.1)
--- NOTE | 2022-06-25 15:20 | P.PN ---
Subjective Date of Service: 06/25/22 Primary Care Provider: Alexia Chief Complaint: Colitis, dehydration, hyponatremia Patient reports ongoing nausea but no vomiting. Physical Examination - Vital Signs Temperature: 98.0 F Blood Pressure: 141/83 Pulse: 79 Respirations: 16 Pulse Ox (%): 100 - Physical Exam General: Alert, In no apparent distress, Oriented x3 HEENT: Mucous membr. moist/pink Neck: JVD not distended Respiratory: Clear to auscultation bilaterally, Normal air movement Cardiovascular: No edema, Regular rate/rhythm, Normal S1 S2 Gastrointestinal: Normal bowel sounds, Soft and benign, Non-distended Musculoskeletal: No swelling Integumentary: No rashes, No cyanosis Neurological: Normal strength at 5/5 x4 extr Lymphatics: No axilla or inguinal lymphadenopathy Assessment And Plan - Current Problems (Diagnosis) (1) Colitis Current Visit: Yes Status: Acute (2) Intractable nausea and vomiting Current Visit: Yes Status: Acute (3) Hyponatremia Current Visit: Yes Status: Acute - Plan Colitis Dehydration Hyponatremia Hypertension GERD Anxiety Plan Patient with suspected alcohol abuse. I suspect her symptoms which is primarily vomiting related to alcohol gastritis. She has had no diarrhea or abdominal pain. Also suspect beer potomania causing the hyponatremia. Continue IV normal saline, monitor BMP every 8 hours. Continue IV antibiotics for possible infectious colitis. Trial of IV Protonix. Clear liquid diet advance diet as tolerated
[2022-06-25] MEDS: METRONIDAZOLE 500mg IVPB 500 MG/100 ML BAG IV SCH (16:01)
[2022-06-25] MEDS: Levofloxacin 750mg IV 750 MG/150 ML BAG IV SCH (16:34)
[2022-06-25 20:38] LABS: Potassium 3.7 mEq/L (3.5-5.1)
[2022-06-25] MEDS: ENSURE CLEAR 200 ML CAN PO SCH (21:41)
[2022-06-26] MEDS: METRONIDAZOLE 500mg IVPB 500 MG/100 ML BAG IV SCH ×3 (01:09→16:05)
[2022-06-26 03:53] LABS: Potassium 3.8 mEq/L (3.5-5.1)
[2022-06-26] MEDS: NA CHLORIDE 0.9% 1,000 ML IV SCH ×3 (05:00→20:03)
[2022-06-26] MEDS: FLUOXETINE 20 MG CAP PO SCH (08:56)
[2022-06-26] MEDS: ENSURE CLEAR 200 ML CAN PO SCH ×2 (08:57→20:02)
[2022-06-26] MEDS: ENOXAPARIN 40 MG/0.4 ML SQ SCH (08:57)
[2022-06-26] MEDS: LOSARTAN POTASSIUM 50 MG TABLET PO SCH (08:57)
[2022-06-26] MEDS: PANTOPRAZOLE 40 MG INJ IVP SCH (08:57)
[2022-06-26] MEDS ORDERED: POTASSIUM CL SA 10 MEQ TAB PO ONE (09:00)
--- NOTE | 2022-06-26 10:34 | P.PN ---
Subjective Date of Service: 06/26/22 Primary Care Provider: Alexia Chief Complaint: Colitis, dehydration, hyponatremia Patient states she feels much better today. She states the nausea is better and would like her diet advanced. Sodium level has not improved despite treatment with IV normal saline. She reports drinking hard liquor daily. She denies any history of alcohol withdrawal. Physical Examination - Vital Signs Temperature: 97.4 F Blood Pressure: 145/96 Pulse: 74 Respirations: 16 Pulse Ox (%): 100 - Physical Exam General: Alert, In no apparent distress, Oriented x3, Other (Cachectic) HEENT: Mucous membr. moist/pink, Sclerae nonicteric Respiratory: Clear to auscultation bilaterally, Normal air movement Cardiovascular: No edema, Regular rate/rhythm, Normal S1 S2 Gastrointestinal: Normal bowel sounds, Soft and benign, Non-distended Musculoskeletal: No swelling Integumentary: No rashes Neurological: Normal strength at 5/5 x4 extr Assessment And Plan - Current Problems (Diagnosis) (1) Colitis Current Visit: Yes Status: Acute (2) Intractable nausea and vomiting Current Visit: Yes Status: Acute (3) Hyponatremia Current Visit: Yes Status: Acute - Plan Colitis Dehydration Hyponatremia Hypertension GERD Anxiety Alcohol use Plan Patient with suspected alcohol abuse. I suspect her symptoms which is primarily vomiting related to alcohol gastritis. She has had no diarrhea or abdominal pain. Continue IV Protonix. Patient has been advised to cut down on drinking. Sodium level has not improved with IV normal saline. Possible SIADH. Free water restriction. Nephrology consulted. Continue to monitor BMP Continue IV antibiotics for possible infectious colitis. Advance diet as tolerated. Continue home home dose losartan for hypertension.
--- NOTE | 2022-06-26 13:28 | P.CNS ---
Date of Consult: 06/26/22 Reason for Consult: Hyponatremia Primary Care Provider: Alexia Chief Complaint: Colitis, dehydration, hyponatremia History of Present Illness: 57F with past medical history significant of anemia, diverticulitis, gastritis, GERD, hypertension, anxiety and pancreatitis who p/w shortness of breath, nausea vomiting, and weakness found to have colitis, started on abx, referred to Nephrology for hyponatremia. Serum Na was 127 on adm, decreased to 122 today. She is receiving NS gtt. Allergies Penicillins Allergy (Mild, Verified 02/27/22 15:33) Unknown Tetracyclines Allergy (Mild, Verified 02/27/22 15:33) Unknown Home Medications: Fluoxetine HCl [Prozac] 1 tab PO DAILY 02/27/22 Losartan Potassium [Cozaar*] 1 tab PO DAILY 02/27/22 Aspirin 81 mg PO DAILY #30 tab.chew 03/01/22 - Past Medical/Surgical History Diabetic: No -: Hypertension -: Anxiety -: Peripheral neuropathy -: Peptic ulcer disease -: hypoglycemic -: Tonsillectomy - Family History dad Medical History: Heart disease, Diabetes mom Medical History: Heart disease Notes: dementia - Social History Smoking Status: Current every day smoker Alcohol use: Yes CD- Drugs: No Caffeine use: Yes Place of Residence: Home Review of Systems General: Weakness Eyes: Unremarkable ENT: Unremarkable Respiratory: Unremarkable Cardiovascular: Unremarkable Gastrointestinal: Nausea, Vomiting Genitourinary: Unremarkable Integumentary: Unremarkable Neurological: Unremarkable Lymphatics: Unremarkable Physical Examination Temp Pulse Resp BP Pulse Ox 99.0 F 82 16 155/82 H 99 06/26/22 11:56 06/26/22 11:56 06/26/22 11:56 06/26/22 11:56 06/26/22 11:56 General: In no apparent distress HEENT: Atraumatic, Normocephalic Neck: Supple, JVD not distended Respiratory: Clear to auscultation bilaterally, Other (symmetric chest expansion) Cardiovascular: No rubs, No murmurs Gastrointestinal: Soft and benign, No guarding Musculoskeletal: No clubbing Integumentary: No warmth Neurological: Normal speech, Normal tone Urinary: Other (no bladder distention) External genitalia: Deferred Rectal: Deferred Conclusions/Impression: # Hypotonic, hypo/euvolemic, chronic, symptomatic, moderate-degree hyponatremia 2/2 high ADH state from colitis/SOB/nausea/vomiting/anxiety + low solute state/intake Serum Na 127 on adm, decreased to 122 today Increase NS gtt to 125 cc/hr Urine chem c/w high adh state BNP somewhat elevated Give tolvaptan 15 mg po x 1 dose Cont prozac Anti-emetics prn Abx for colitis per other services ADAT. Encourage po solid food intake at least half a plate per meal tid KCl repletion prn to keep serum K at 4.0 or higher Mg repletion prn Monitor lytes q6h # Colitis abx per primary team Anti emetics prn # Anxiety dso Prozac # Htn Cont current med regimen
[2022-06-26 16:53] LABS: Potassium 3.9 mEq/L (3.5-5.1); Uric Acid 1.6 mg/dL (2.6-6.0)
[2022-06-26] MEDS: Levofloxacin 750mg IV 750 MG/150 ML BAG IV SCH (17:00)
[2022-06-26] MEDS ORDERED: LORAZEPAM 1 MG TABLET PO ONE (21:13)
[2022-06-26 22:54] LABS: Potassium 3.6 mEq/L (3.5-5.1)
[2022-06-27] MEDS: METRONIDAZOLE 500mg IVPB 500 MG/100 ML BAG IV SCH ×2 (00:23→08:24)
[2022-06-27 03:32] LABS: Hematocrit 29.1 % (36.0-45.0); Lymphocytes % 25.7 % (15.3-44.8); MCV 95.6 fL (80-100); MPV 8.5 fL (7.6-11.3); RBC Red Blood Cell Count 3.05 M/uL (3.86-4.86)
[2022-06-27 03:47] LABS: Phosphorus 1.6 mg/dL (2.5-4.9); Potassium 3.2 mEq/L (3.5-5.1)
[2022-06-27 03:51] LABS: Magnesium 0.8 mg/dL (1.6-2.4)
[2022-06-27] MEDS ORDERED: MAGNESIUM 50% 3 GM in NA CHLORIDE 0.9% 100 ML IV ONE (03:58)
[2022-06-27 04:14] LABS: Blood Morphology Comment NOT SEEN (NOT SEEN); Platelet Estimate DECR; White Blood Cell Scan OK (OK)
[2022-06-27] MEDS ORDERED: Magnesium Sulfate 2gm IVPB 2 G/50 ML BAG IV ONE ×2 (05:00→06:48)
[2022-06-27] MEDS: NA CHLORIDE 0.9% 1,000 ML IV SCH ×3 (05:31→21:42)
[2022-06-27] MEDS ORDERED: MAGNESIUM SULFATE 1 gm IVPB 1 GM/100 ML BAG IV ONE (06:00)
[2022-06-27] MEDS ORDERED: POTASSIUM PHOS IN 0.9 % NACL 15 MMOL/250 ML BAG IV ONE (06:47)
[2022-06-27] MEDS ORDERED: POTASSIUM CL SA 10 MEQ TAB PO ONE (06:48)
[2022-06-27] MEDS ORDERED: TOLVAPTAN 15 MG TABLET PO ONE (08:00)
[2022-06-27] MEDS: POTASS/SODIUM PHOSPHATE 1 PKT POWD.PACK PO SCH ×3 (08:00→13:27)
[2022-06-27] MEDS: ENOXAPARIN 40 MG/0.4 ML SQ SCH (08:20)
[2022-06-27] MEDS: PANTOPRAZOLE 40 MG INJ IVP SCH (08:20)
[2022-06-27] MEDS: FLUOXETINE 20 MG CAP PO SCH (08:20)
[2022-06-27] MEDS ORDERED: POTASSIUM 25 MEQ EFFERV TAB PO ONE (09:00)
[2022-06-27] MEDS: ENSURE CLEAR 200 ML CAN PO SCH ×2 (09:00→20:38)
[2022-06-27] MEDS: LOSARTAN POTASSIUM 50 MG TABLET PO SCH (09:04)
[2022-06-27 10:15] LABS: Potassium 3.9 mEq/L (3.5-5.1)
--- NOTE | 2022-06-27 11:06 | P.PN ---
Subjective Date of Service: 06/27/22 Primary Care Provider: Alexia Chief Complaint: Colitis, dehydration, hyponatremia Patient states she feels much better today. She is ambulating. She is tolerating her diet and request to go home today. Physical Examination - Vital Signs Temperature: 97.7 F Blood Pressure: 147/85 Pulse: 69 Respirations: 19 Pulse Ox (%): 100 - Physical Exam General: Alert, In no apparent distress, Oriented x3 HEENT: Mucous membr. moist/pink Neck: JVD not distended Respiratory: Clear to auscultation bilaterally, Normal air movement Cardiovascular: No edema, Regular rate/rhythm, Normal S1 S2 Gastrointestinal: Normal bowel sounds, Soft and benign, Non-distended, No tenderness Musculoskeletal: No swelling Integumentary: No cyanosis Neurological: Normal strength at 5/5 x4 extr Assessment And Plan - Current Problems (Diagnosis) (1) Colitis Current Visit: Yes Status: Acute (2) Intractable nausea and vomiting Current Visit: Yes Status: Acute (3) Hyponatremia Current Visit: Yes Status: Acute - Plan Colitis Dehydration Hyponatremia Hypertension GERD Anxiety Alcohol use Plan Patient with suspected alcohol abuse. I suspect her symptoms which is primarily vomiting related to alcohol gastritis. She has had no diarrhea or abdominal pain. Nausea and vomiting resolved. Change IV Protonix to p.o. Change antibiotics for colitis to p.o.. Patient has been advised to cut down on drinking. Nephrology seen patient for hyponatremia. Dr. Gray's input appreciated Sodium level trended down, currently at 119. Patient received a tolvaptan today. IV sodium chloride infusion rate increased to 125 ml/hr. Continue to monitor BMP. Free water restriction. Advance diet as tolerated. Hold losartan due to persistent hyponatremia. Monitor blood pressure with amlodipine for now.
[2022-06-27 12:53] LABS: Potassium 4.2 mEq/L (3.5-5.1)
--- NOTE | 2022-06-27 13:29 | P.PN ---
Subjective Date of Service: 06/27/22 Primary Care Provider: Alexia Chief Complaint: Colitis, dehydration, hyponatremia Subjective: No new changes Physical Examination - Vital Signs Temperature: 97.6 F Blood Pressure: 133/73 Pulse: 80 Respirations: 21 Pulse Ox (%): 0 - Physical Exam General: In no apparent distress HEENT: Atraumatic, Normocephalic Neck: Supple Respiratory: Other (symmetric chest expansion) Cardiovascular: No rubs, No murmurs Gastrointestinal: Soft and benign, No guarding Musculoskeletal: No clubbing Integumentary: No warmth Neurological: Normal speech, Normal tone Urinary: Other (no bladder distention) External genitalia: Deferred Rectal: Deferred Assessment And Plan - Plan # Hypotonic, hypo/euvolemic, chronic, symptomatic, moderate-degree hyponatremia 2/2 high ADH state from colitis/SOB/nausea/vomiting/anxiety + low solute state/intake Serum Na 127 on adm, decreased to 122 yesterday, improved to 126 today Urine chem c/w high adh state BNP not sig elevated. Cont NS gtt to 125 cc/hr. Start NaCl 1 g by mouth 3 times a day. Received tolvaptan 15 mg by mouth 1 this morning Cont prozac Anti-emetics prn Abx for colitis per other services ADAT. Encourage po solid food intake at least half a plate per meal tid KCl repletion prn to keep serum K at 4.0 or higher Mg repletion prn Monitor lytes q6h Serum Na long-term goal above 130 meq per liter to avoid imbalance/falls # Colitis Resolving Abx per primary team ADAT Anti emetics prn # Anxiety dso Prozac # Htn Cont current med regimen
[2022-06-27] MEDS: metroNIDAZOLE 500 MG TABLET PO SCH ×2 (14:44→20:38)
[2022-06-27] MEDS: SODIUM CHLORIDE 1 GM TAB PO SCH ×2 (14:44→16:45)
[2022-06-27 15:57] LABS: Magnesium 1.8 mg/dL (1.6-2.4); Phosphorus 2.9 mg/dL (2.5-4.9); Potassium 3.8 mEq/L (3.5-5.1)
[2022-06-27 22:00] LABS: Potassium 3.7 mEq/L (3.5-5.1)
[2022-06-28] MEDS: NA CHLORIDE 0.9% 1,000 ML IV SCH (05:36)
[2022-06-28 06:15] LABS: Absolute Lymphocytes (CBC) 0.7 K/uL (0.7-4.9); Hematocrit 28.7 % (36.0-45.0); Lymphocytes % 18.8 % (15.3-44.8); MCV 97.3 fL (80-100); MPV 8.5 fL (7.6-11.3); RBC Red Blood Cell Count 2.95 M/uL (3.86-4.86)
[2022-06-28 06:32] LABS: Magnesium 1.6 mg/dL (1.6-2.4); Phosphorus 2.6 mg/dL (2.5-4.9); Potassium 3.6 mEq/L (3.5-5.1)
[2022-06-28] MEDS ORDERED: POTASSIUM CL SA 10 MEQ TAB PO ONE (07:26)
[2022-06-28] MEDS ORDERED: MAGNESIUM SULFATE 1 gm IVPB 1 GM/100 ML BAG IV ONE (07:27)
[2022-06-28] MEDS ORDERED: PANTOPRAZOLE 40MG TABLET PO SCH (07:30)
[2022-06-28] MEDS: SODIUM CHLORIDE 1 GM TAB PO SCH ×2 (08:00→12:33)
[2022-06-28] MEDS: ENOXAPARIN 40 MG/0.4 ML SQ SCH (08:00)
[2022-06-28] MEDS: metroNIDAZOLE 500 MG TABLET PO SCH (08:00)
[2022-06-28] MEDS: FLUOXETINE 20 MG CAP PO SCH (08:00)
[2022-06-28] MEDS: ENSURE CLEAR 200 ML CAN PO SCH (08:01)
[2022-06-28 08:21] VITALS: BP 162/84; TEMP 97
[2022-06-28] MEDS ORDERED: levoFLOXacin 500 MG TAB PO SCH (09:00)
[2022-06-28 09:56] VITALS: O2SAT 99
--- NOTE | 2022-06-28 10:17 | P.DS ---
Admission Date: 06/24/22 Discharge Date: 06/28/22 Primary Care Provider: Alexia Reason for Admission: Colitis, dehydration, hyponatremia - Problems (1) Colitis Current Visit: Yes Status: Acute (2) Intractable nausea and vomiting Current Visit: Yes Status: Acute (3) Hyponatremia Current Visit: Yes Status: Acute (4) Moderate protein-calorie malnutrition Current Visit: Yes Status: Acute Brief History of Present Illness: This is a 57-year-old female with past medical history significant for anemia, diverticulitis, gastritis, GERD, hypertension, anxiety and pancreatitis. Patient comes to the emergency room with complaints of shortness of breath, nausea vomiting, and weakness. Patient stated her symptoms started 1 day prior to presentation. She also reported onset of coughing with dizziness and lightheadedness. She denies any chest pain or any other contributing factor. In the ER, her labs are significant for hyponatremia with a sodium is [address] abdomen and pelvis demonstrated colitis. Patient admitted for further management. Hospital Course: Colitis Dehydration Hyponatremia Hypertension GERD Anxiety Alcohol use Patient admitted to the medical floor Patient with suspected alcohol abuse. I suspect her nausea and vomiting were primarily related to alcohol gastritis. She had no diarrhea or abdominal pain. Patient treated with IV protonix and antibiotics-Levaquin and Flagyl Nausea and vomiting resolved. Changed IV Protonix to p.o. Change antibiotics for colitis to p.o. Levaquin and Flagyl. Patient has been advised to cut down on drinking. She had hyponatremia which did not respond to normal saline hydration and free water restriction. SIADH suspect Nephrology seen patient for hyponatremia. Dr. Gray recommended tolvaptan and sodium tablet. Sodium level improved to 130 after these measures. Patient has clinically improved, she has tolerated solid diet and asymptomatic. Patient deemed clinically stable for discharge. Vital Signs/Physical Exam: Temp Pulse Resp BP Pulse Ox 97.0 F 65 14 162/84 H 99 06/28/22 08:00 06/28/22 08:00 06/28/22 08:00 06/28/22 08:00 06/28/22 08:00 General: Alert, In no apparent distress, Oriented x3 HEENT: Mucous membr. moist/pink Neck: JVD not distended Respiratory: Clear to auscultation bilaterally, Normal air movement Cardiovascular: No edema, Regular rate/rhythm, Normal S1 S2 Gastrointestinal: Normal bowel sounds, Soft and benign, Non-distended, No tenderness Musculoskeletal: No clubbing, No tenderness Integumentary: No rashes, No cyanosis Neurological: Normal strength at 5/5 x4 extr Laboratory Data at Discharge: WBC 3.80 thou/uL (4.3-10.9) L 06/28/22 05:55 Hgb 9.7 g/dL (12.0-15.0) L 06/28/22 05:55 Hct 28.7 % (36.0-45.0) L 06/28/22 05:55 Plt Count 101 thou/uL (152-406) L 06/28/22 05:55 Sodium 130 mEq/L (136-145) L D 06/28/22 05:55 Potassium 3.6 mEq/L (3.5-5.1) 06/28/22 05:55 BUN 5 mg/dL (7-18) L 06/28/22 05:55 Creatinine 0.59 mg/dL (0.55-1.02) 06/28/22 05:55 Glucose 108 mg/dL (74-106) H 06/28/22 05:55 Uric Acid 1.6 mg/dL (2.6-6.0) L 06/26/22 16:12 Phosphorus 2.6 mg/dL (2.5-4.9) 06/28/22 05:55 Magnesium 1.6 mg/dL (1.6-2.4) 06/28/22 05:55 Total Bilirubin 1.7 mg/dL (0.2-1.0) H 06/24/22 13:29 AST 24 U/L (15-37) 06/24/22 13:29 ALT 19 U/L (13-56) 06/24/22 13:29 Alkaline Phosphatase 116 U/L (45-117) 06/24/22 13:29 Triglycerides 52 mg/dL (<150) 06/25/22 02:50 Cholesterol 221 mg/dL (<200) H 06/25/22 02:50 HDL Cholesterol 160 mg/dL (40-60) H 06/25/22 02:50 Cholesterol/HDL Ratio 1.38 06/25/22 02:50 Lipase 35 U/L (13-75) 06/24/22 13:29 Home Medications: Fluoxetine HCl [Prozac] 1 tab PO DAILY 02/27/22 Losartan Potassium [Cozaar*] 1 tab PO DAILY 02/27/22 Aspirin 81 mg PO DAILY #30 tab.chew 03/01/22 Sodium Chloride Tab [Sodium Chloride*] 1 gm PO TIDWM #90 tab 06/28/22 New Medications: Sodium Chloride Tab [Sodium Chloride*] 1 gm PO TIDWM #90 tab Diet: AHA Activity: Ad cristiane Followup: Lula Martinez MD [ACTIVE - CAN ADMIT] - 1-2 Weeks NONE,NONE [Primary Care Provider] -
[2022-06-28 13:48] LABS: Potassium 3.9 mEq/L (3.5-5.1)
--- NOTE | 2022-06-29 01:49 | PN ---
Date of Progress Note: 06/28/2022 Chief Complaint: Hyponatremia. The patient presented to the hospital because of diarrhea. The patient was found to have euvolemic, hypotonic, chronic and asymptomatic moderate degree hyponatremia secondary to high ADH state from [place], vomiting, anxiety associated with colitis and complicated by low solute intake. Sodium was 127 on admission and decreased to 122 on subsequent day, subsequently improved to 126, today sodium level was 130. The patient primarily received normal saline infusion 125 mL/hour and sodium chloride tabl ets were started 1 g 3 times per day. The patient received tolvaptan 15 mg by mouth x1 dose yesterda y. The patient is on Prozac for depression. She received antiemetics as well for nausea and vomitin g to control high ADH state. Today, sodium has improved. Patient is asymptomatic. She is requestin g to be discharged to home. Review of Systems: Denies fever, chills. Physical Examination: Normal respiratory effort. HEART: S1, S2. ABDOMEN: Soft. EXTREMITIES: No edema. Impression And Plan: Hypotonic, hypovolemic and subsequently euvolemic asymptomatic moderate degree hyponatremia secondary to high ADH state from colitis causing nausea, vomiting, anxiety and complicat ed by low solute intake. Serum sodium level has gradually improved. Patient will continue fluid res triction to prevent hyponatremia, although in view of recent tolvaptan, I discussed with the patient to hold fluid restriction at this point. Sodium level was re-evaluated and was 129 in the afternoon today. Antiemetics although will be used for nausea control. Plan is to encourage patient to consum e protein diet as tolerated, to deliver some solute as well. Potassium and magnesium repletion was r ecommended and potassium target range is 4.0. The patient will need to follow up with antisqueak worker as soon as possible. EB/MODL Voice ID: [id number] Report ID: [id number]
== END 2022-06-28 13:50 | disposition home or self-care (01) | DRG 644 ==
LOC: ER 12:56 → ERHOLD 15:41 → 2ND 17:51
PROVIDERS: ADMIT Internal Medicine; ATTEND Internal Medicine
DX: E22.2 Syndrome of inappropriate secretion of antidiuretic hormone (principal); E44.0 Moderate protein-calorie malnutrition; Z68.1 Body mass index [BMI] 19.9 or less, adult; R64 Cachexia; K29.20 Alcoholic gastritis without bleeding; K52.9 Noninfective gastroenteritis and colitis, unspecified; E86.0 Dehydration; I10 Essential (primary) hypertension; F41.9 Anxiety disorder, unspecified; K21.9 Gastro-esophageal reflux disease without esophagitis; F10.10 Alcohol abuse, uncomplicated; F17.200 Nicotine dependence, unspecified, uncomplicated; Z88.0 Allergy status to penicillin; Z88.1 Allergy status to other antibiotic agents; Z79.82 Long term (current) use of aspirin
CPT/HCPCS: 36415; 74177; 76705; 80048; 80051; 80053; 80061; 80069; 81003; 83605; 83690; 83735; 83880; 83935; 84100; 84132; 84300; 84550; 85025; 99284; C9113; J0744; J1650; J2405; J3475; J7030; J7120; J8499; Q9967